=== PATIENT | female | born 2000 | race African-American/Black ===

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

== ENCOUNTER 2019-06-25 20:38 | Emergency (ER) | payer OTHER, SELFPAY ==
--- OUTSIDE RECORDS SUMMARY | 2019-06-25 20:40 | XMS REPORT ---
:2000 [facility] Address [address] [place] [address] [address] Care Team Providers Name Role Phone Unavailable Unavailable Unavailable Problems This patient has no known problems. Allergies, Adverse Reactions, Alerts This patient has no known allergies or adverse reactions. Medications This patient has no known medications. Encounters Start End Encounter Admission Attending Care Care Encounter Date/Time Date/Time Type Type Clinicians Facility Department ID 2019-06-24 2019-06-24 Emergency E [id number] 16:16:00 16:16:00
[2019-06-25] MEDS ORDERED: ACETAMINOPHEN 500 MG TAB ONE (21:02)
--- NOTE | 2019-06-25 22:08 | ER ---
Nurse's Notes [facility] Name: Tripp Smith Age: 18 yrs Sex: Female : 2000 Arrival Date: 06/25/2019 Time: 20:42 Bed 25 Private MD: Diagnosis: Influenza due to other identified influenza virus-Influenza B Presentation: 06/25 20:48 Presenting complaint: Patient states: Cough, congestion and fever since Monday. I was ca1 at [facility] and was told I had the Flu. They just told me to take Ibuprofen, Tylenol and TheraFlu. I was not swabbed. Ibuprofen taken 2 hrs ago. Tylenol 6 hrs. Transition of care: patient was not received from another setting of care. Onset of symptoms was June 25, 2019. Risk Assessment: Do you want to hurt yourself or someone else? Patient reports no desire to harm self or others. Initial Sepsis Screen: Does the patient meet any 2 criteria? No. Patient's initial sepsis screen is negative. Does the patient have a suspected source of infection? No. Patient's initial sepsis screen is negative. Care prior to arrival: None. 20:48 Method Of Arrival: Ambulatory ca1 20:48 Acuity: ALEJANDRO 3 ca1 Triage Assessment: 21:00 General: Appears uncomfortable, Behavior is calm, cooperative. ls4 21:00 Pain: Complains of pain in GENERALIZED Pain currently is 5 out of 10 on a pain scale. ls4 Quality of pain is described as aching. EENT: Throat is clear. Neuro: No deficits noted. Cardiovascular: No deficits noted. Respiratory: No deficits noted. GI: No deficits noted. : No deficits noted. Derm: No deficits noted. Musculoskeletal: No deficits noted. 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 - Coronavirus screen:: The patient has NOT traveled to [place] in the past 14 days. The patient has NOT had contact with known/suspected case of Coronavirus?. - Social history:: Smoking status: Patient denies any tobacco usage or history of. - Ebola Screening: : Patient negative for fever greater than or equal to 101.5 degrees Fahrenheit, and additional compatible Ebola Virus Disease symptoms Patient denies exposure to infectious person Patient denies travel to an Ebola-affected area in the 21 days before illness onset No symptoms or risks identified at this time. Screenin:19 Abuse screen: Denies threats or abuse. Denies injuries from another. Nutritional ls4 screening: No deficits noted. Tuberculosis screening: No symptoms or risk factors identified. Fall Risk None identified. Assessment: 22:00 Reassessment: Patient appears in no apparent distress at this time. Patient and/or ls4 family updated on plan of care and expected duration. Pain level reassessed. Patient is alert, oriented x 3, equal unlabored respirations, skin warm/dry/pink. 22:00 Pain: Pain currently is 4 out of 10 on a pain scale. Neuro: No deficits noted. ls4 Cardiovascular: No deficits noted. Respiratory: No deficits noted. GI: No deficits noted. Vital Signs: 20:52 BP 120 / 68; Pulse 125; Resp 19 S; Temp 103.1(O); Pulse Ox 97% on R/A; Weight 88.45 kg ca1 (R); Height 5 ft. 3 in. (160.02 cm) (R); 22:22 BP 118 / 74; Pulse 98; Resp 16; Temp 100.9(O); Pulse Ox 99% on R/A; Pain 3/10; ls4 20:52 Body Mass Index 34.54 (88.45 kg, 160.02 cm) ca1 ED Course: 20:42 Patient arrived in ED. jg7 20:51 Triage completed. ca1 20:52 Arm band placed on right wrist. ca1 20:59 Flu and/or RSV swab sent to lab. Strep swab sent to lab. ca1 21:00 Patient has correct armband on for positive identification. Bed in low position. Call ls4 light in reach. Side rails up X 1. Adult w/ patient. 21:00 Pulse ox on. NIBP on. ls4 21:00 No provider procedures requiring assistance completed. Patient did not have IV access ls4 during this emergency room visit. 21:05 Myles Erwin NP is PHCP. pm1 21:05 Aristides Bustos MD is Attending Physician. pm1 21:14 Anna Laws, RN is Primary Nurse. ls4 22:18 Strep Sent. ls4 22:18 Flu Sent. ls4 Administered Medications: 20:59 Drug: Tylenol 1000 mg Route: PO; ca1 22:18 Follow up: Response: No adverse reaction; Temperature is decreased; Pain is decreased ls4 22:07 Drug: Tussionex Pennkinetic ER 5 ml Route: PO; ls4 22:19 Follow up: Response: No adverse reaction ls4 22:07 Drug: Ibuprofen 800 mg Route: PO; ls4 22:19 Follow up: Response: No adverse reaction ls4 Outcome: 22:06 Discharge ordered by MD. pm1 22:22 Discharged to home ambulatory, with family. ls4 22:22 Condition: good 22:22 Discharge instructions given to patient, family, Instructed on discharge instructions, follow up and referral plans. medication usage, Demonstrated understanding of instructions, follow-up care, medications, Prescriptions given X 1. 22:23 Patient left the ED. ls4 Signatures: Myles Erwin, [facility] RN pm1 Anna Laws, RN RN ls4 Sonia Noble RN RN ca1 Daysi Tran jg7
--- NOTE | 2019-06-25 22:08 | EDPHYS ---
Physician Documentation [facility] Name: Tripp Smith Age: 18 yrs Sex: Female : 2000 Arrival Date: 06/25/2019 Time: 20:42 Bed 25 Private MD: ED Physician Aristides Bustos HPI: 06/25 20:54 This 18 yrs old Black Female presents to ER via Ambulatory with complaints of Flu pm1 Symptoms. 20:54 The patient or guardian reports cough, with no sputum, sore throat. Onset: The pm1 symptoms/episode began/occurred 3 day(s) ago. Severity of symptoms: in the emergency department the symptoms are unchanged. Modifying factors: The symptoms are alleviated by OTC cold preparation, the symptoms are aggravated by nothing. Associated signs and symptoms: Pertinent positives: fever, sore throat, Pertinent negatives: chest pain, diarrhea, ear ache, vomiting. The patient has not experienced similar symptoms in the past. clinically diagnosed with the flu on Monday at [facility]. 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 - Coronavirus screen:: The patient has NOT traveled to [place] in the past 14 days. The patient has NOT had contact with known/suspected case of Coronavirus?. - Social history:: Smoking status: Patient denies any tobacco usage or history of. - Ebola Screening: : Patient negative for fever greater than or equal to 101.5 degrees Fahrenheit, and additional compatible Ebola Virus Disease symptoms Patient denies exposure to infectious person Patient denies travel to an Ebola-affected area in the 21 days before illness onset No symptoms or risks identified at this time. ROS: 20:54 Eyes: Negative for injury, pain, redness, and discharge. pm1 20:54 Neck: Negative for injury, pain, and swelling, Cardiovascular: Negative for chest pain, palpitations, and edema. 20:54 Abdomen/GI: Negative for abdominal pain, nausea, vomiting, diarrhea, and constipation, Back: Negative for injury and pain, MS/Extremity: Negative for injury and deformity, Skin: Negative for injury, rash, and discoloration, Neuro: Negative for headache, weakness, numbness, tingling, and seizure. 20:54 Constitutional: Positive for fever. 20:54 ENT: Positive for sore throat, Negative for drainage from ear(s), ear pain. 20:54 Respiratory: Positive for cough, Negative for shortness of breath, sputum production, wheezing. Exam: 20:54 Constitutional: This is a well developed, well nourished patient who is awake, alert, pm1 and in no acute distress. Head/Face: Normocephalic, atraumatic. Neck: Trachea midline, no thyromegaly or masses palpated, and no cervical lymphadenopathy. Supple, full range of motion without nuchal rigidity, or vertebral point tenderness. No Meningismus. Chest/axilla: Normal chest wall appearance and motion. Nontender with no deformity. No lesions are appreciated. 20:54 Cardiovascular: Regular rate and rhythm with a normal S1 and S2. No gallops, murmurs, or rubs. Normal PMI, no JVD. No pulse deficits. Respiratory: Lungs have equal breath sounds bilaterally, clear to auscultation and percussion. No rales, rhonchi or wheezes noted. No increased work of breathing, no retractions or nasal flaring. Abdomen/GI: Soft, non-tender, with normal bowel sounds. No distension or tympany. No guarding or rebound. No evidence of tenderness throughout. Back: No spinal tenderness. No costovertebral tenderness. Full range of motion. Skin: Warm, dry with normal turgor. Normal color with no rashes, no lesions, and no evidence of cellulitis. MS/ Extremity: Pulses equal, no cyanosis. Neurovascular intact. Full, normal range of motion. 20:54 ENT: External ear(s): are unremarkable, Ear canal(s): are normal, TM's: are normal, Nose: is normal, Mouth: is normal, Posterior pharynx: Airway: normal, no evidence of obstruction, Tonsils: bilaterally enlarged, with erythema, no exudate, no ulcerations. 20:54 Neuro: Orientation: is normal, Motor: is normal, moves all fours. Vital Signs: 20:52 BP 120 / 68; Pulse 125; Resp 19 S; Temp 103.1(O); Pulse Ox 97% on R/A; Weight 88.45 kg ca1 (R); Height 5 ft. 3 in. (160.02 cm) (R); 22:22 BP 118 / 74; Pulse 98; Resp 16; Temp 100.9(O); Pulse Ox 99% on R/A; Pain 3/10; ls4 20:52 Body Mass Index 34.54 (88.45 kg, 160.02 cm) ca1 MDM: 21:05 Patient medically screened. pm1 22:05 Data reviewed: vital signs. Data interpreted: Pulse oximetry: on room air is 97 %. pm1 Interpretation: normal. Counseling: I had a detailed discussion with the patient and/or guardian regarding: the historical points, exam findings, and any diagnostic results supporting the discharge/admit diagnosis, lab results, the need for outpatient follow up, to return to the emergency department if symptoms worsen or persist or if there are any questions or concerns that arise at home. 06/25 20:54 Order name: Flu ca1 06/25 20:54 Order name: Strep ca1 06/25 21:43 Order name: Influenza Screen (A ; Complete Time: 21:55 EDMS 06/25 21:43 Order name: Group A Streptococcus Rapid Sc; Complete Time: 21:55 EDMS Administered Medications: 20:59 Drug: Tylenol 1000 mg Route: PO; ca1 22:18 Follow up: Response: No adverse reaction; Temperature is decreased; Pain is decreased ls4 22:07 Drug: Tussionex Pennkinetic ER 5 ml Route: PO; ls4 22:19 Follow up: Response: No adverse reaction ls4 22:07 Drug: Ibuprofen 800 mg Route: PO; ls4 22:19 Follow up: Response: No adverse reaction ls4 Disposition: 06/25/19 22:06 Discharged to Home. Impression: Influenza due to other identified influenza virus - Influenza B. - Condition is Stable. - Discharge Instructions: Influenza, Adult. - Prescriptions for Guaifenesin AC 10- 100 mg/5 mL Oral Liquid - take 10 milliliter by ORAL route every 4 hours As needed; 240 milliliter. - Medication Reconciliation Form, Thank You Letter, Antibiotic Education, Prescription Opioid Use form. - Follow up: Emergency Department; When: As needed; Reason: Worsening of condition. Follow up: Private Physician; When: 2 - 3 days; Reason: Recheck today's complaints, Continuance of care, Re-evaluation by your physician. - Problem is new. - Symptoms have improved. Addendum: 06/27/2019 08:24 Co-signature as Attending Physician, Aristides Bustos MD I agree with the assessment and t w4 plan of care. Signatures: Dispatcher [employer] EDMS Myles Erwin, COLLECTION SYSTEMS WORKER COLLECTION SYSTEMS WORKER pm1 Aristides Bustos MD MD tw4 Anna Laws RN RN ls4 Sonia Noble RN RN ca1 Corrections: (The following items were deleted from the chart) 06/25 22:23 22:06 06/25/2019 22:06 Discharged to Home. Impression: Influenza due to other ls4 identified influenza virus - Influenza B. Condition is Stable. Forms are Medication Reconciliation Form, Thank You Letter, Antibiotic Education, Prescription Opioid Use. Follow up: Emergency Department; When: As needed; Reason: Worsening of condition. Follow up: Private Physician; When: 2 - 3 days; Reason: Recheck today's complaints, Continuance of care, Re-evaluation by your physician. Problem is new. Symptoms have improved. pm1
[2019-06-25] MEDS ORDERED: IBUPROFEN 400 MG TAB ONE (22:12)
[2019-06-25] MEDS ORDERED: HYDROCODONE/CHLORPHEN 5 ML/OSYR ONE (22:12)
[2019-06-27 12:41] VITALS: BP 118/74; TEMP 100.9; O2SAT 99
== END 2019-06-25 22:23 | disposition home or self-care (01) ==
LOC: ER 20:38
DX: J10.89 Influenza due to other identified influenza virus with other manifestations (principal); Z88.0 Allergy status to penicillin
CPT/HCPCS: 87070; 87081; 87804; 99284

== ENCOUNTER 2023-11-01 13:35 | Emergency (ER) | payer SELFPAY ==
--- OUTSIDE RECORDS SUMMARY | 2023-11-01 13:41 | XMS REPORT | Continuity of Care Document ---
Author Name Unknown Address [address] [facility] [place] [address] [facility] Address [address] [facility] [address] [place] [address] Care Team Providers Care Log Hauler Name Role Phone GENIE LUA Primary Care Physician Unavailab ROSAURA Ford Attending Clinician Unavailable ROSAURA MENDEZ Attending Clinician Unavailable PARVIN SZYMANSKI Attending Clinician Un available Genie Lua CNM Attending Clinician [phone] GENIE LUA Attending Clinician Unavailable Sobia LIAO, Radha Zuniga Attending Clinician [phone] SHARON WILLIAMSON Attending Clinician Unavaila OLGA LIDIA Cooley Attending Clinician Unavailable 2, Pea-Rm[facility] Temp Provider Attending Clinician U Olga Lidia Robin CNM Attending Clinician [phone] Doctor Unassigned, [place] Attending Clinician U josephine Waldemar [facility] Maurice Kc Attending Clinician + Layla Hamlin CNM Attending Clinician +- [phone] MAURICE MEDEIROS Attending Clinician [facility] Attending [facility]ician + AGUIRRE ELSA L Attending Clinician Unavail able Tg GARCIA Attending Clinician Unavailable Jose PACTg Attending Clinician [phone] POLLY CUMMINGS Attending Clinician Unavailable Zoila PACPolly S Attending Clinician [phone] DANIEL WOODS Attending Clinician Unavailab JOE Pedersen Attending Clinician Unavailab beto Visit, Con-[facility] Nurse Attending Clinician Unava iljasmin Méndez [facility], Joe Galdamez Attending Clinician + [phone] Ambar Matson Attending Clinician [phone] AMBAR FLORENCE Attending Clinician Unavailable ANNA MILLER Attending Clinician Unavailable Anna Miller APN Attending Clinician [phone] Visit, Ang-[facility] Nurse Attending Clinician Unava ilable ELI WOODSON Attending Clinician Unavailable Lab, Nw-Rm[facility] Attending Clinician Unavailable Eli Woodson PA-C Attending Clinician [phone] Burak Duvall Attending Clinician Unavailable Lab, Con[facility] Attending Clinician Unavailable Juju Novoa Attending Clinician [phone] JUJU PENN Attending Clinician Unavailable Esteban Mclean DO Attending Clinician [phone] Belén Omer CNM Attending Clinician + [phone] BELÉN OMER Attending Clinician Unavailable Daniel Bernard Attending Clinician + [phone] sharyn Attending Clinician Unavailable Maira A Knutson MD Attending Clinician [phone] Physician, No Primary or Family Admitting Clinic lilly Unavailable sharyn Admitting Clinician Unavailable Payers Payer Name Policy Type Policy Number Effective Date Expirati on Date Source [facility] [id number] 00:00:00 Problems Condition Name Condition Details Condition Category Status Onset Date Resolution Date Last Treatment Date Treating Clinician Comments Source 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 Will need repeat pap in 1 year 10/2023 [facility] Atypical squamous cells of undetermin ed significan ce (ASCUS) on Papanicola ou smear of cervix Atypical squamous cells of undetermin ed significan ce (ASCUS) on Papanicola ou smear of cervix Disease Active 4- 00:00: 00 Overview: Formattin g of this note might be different from the original. 07/2021, repeat pap in 1 year 07/2022 [facility] Severe acute respirator y syndrome coronaviru s 2 (SARS-CoV- 2) vaccinatio n not indicated Severe acute respirator y syndrome coronaviru s 2 (SARS-CoV- 2) vaccinatio n not indicated Disease Active 07-07 00:00: 00 Overview: Formattin g of this note might be different from the original. Problem added via discern rule sz_covid_ pos_neg [facility] Severe acute respirator y syndrome coronaviru s 2 (SARS-CoV- 2) vaccinatio n not indicated Severe acute respirator y syndrome coronaviru s 2 (SARS-CoV- 2) vaccinatio n not indicated Disease Active 07-07 00:00: 00 Overview: Formattin g of this note might be different from the original. Problem added via discern rule sz_covid_ pos_neg [facility] Other general counseling and advice for contracept rosa management Other general counseling and advice for contracept rosa management Disease Active 1- 00:00: 00 [facility] Screening examinatio n for STD (sexually transmitte d disease) Screening examinatio n for STD (sexually transmitte d disease) Disease Active 8-06 00:00: 00 [facility] History of PCOS History of PCOS Disease Active 08-04 00:00: 00 [facility] History of gonorrhea 09/05/18 History of gonorrhea 09/05/18 Disease Active 2019-05 2- 00:00: 00 [facility] Morbid obesity Morbid obesity Disease Active 3- 00:00: 00 [facility] Irregular menstrual cycle Irregular menstrual cycle Disease Active 07-31 00:00: 00 [facility] Bacterial vaginosis Bacterial vaginosis Disease Active 09-05 00:00: 00 [facility] History of chlamydia 01/23/20 - CORNELL negative 04/2020 History of chlamydia 01/23/20 - CORNELL negative 04/2020 Disease Active 11-23 00:00: 00 [facility] Allergies, Adverse Reactions, Alerts Allergy Name Allergy Type Status Severity Reaction(s) Onset Date Inactive Date Treating Clinician Comments Source Penicill ins DA Active U UNKNOWN 11-04 00:00: 00 [facility] Penicill ins DA Active U 11-04 00:00: 00 [facility] Penicill ins DA Active U 2019-05 00:00: 00 [facility] DA Active U HIVES 2019-05 00:00: 00 [facility] PENICILL IN DRUG INGREDI Active Hives 828 00:00: 00 [facility] Penicill in Drug Allergy Active Rash 8 00:00: 00 [facility] Social History Social Habit Start Date Stop Date Quantity Comments Source [facility] Alcohol intake 2023-02-23 00:00:00 2023-02-23 00:00:00 Current non-drinker of alcohol (finding) [facility] Exposure to SARS-CoV-2 (event) 2022-10-01 00:00:00 2022-10-11 09:08:00 Not sure [facility] History of Social function 2022-06-03 00:00:00 2022-06-03 00:00:00 [facility] Tobacco Comment 2022-06-03 00:00:00 2022-06-03 00:00:00 denies smoke exposure [facility] Tobacco use and exposure 2022-06-03 00:00:00 2022-06-03 00:00:00 Smokeless tobacco non-user [facility] Sex Assigned At 2000 00:00:00 2000 00:00:00 [facility] Smoking Status Start Date Stop Date Source Never smoked tobacco [facility] Medications Ordered Medication Name Filled Medication Name Start Date Stop Date Current Medication? Ordering Clinician Indication Dosage Frequency Signature (SIG) Comments Components Source metroNIDAZO LE 500 mg tablet 2022-05 017 00:00: 00 03-08 04:59 :00 No [id number] 500mg Take 1 tablet by mouth every 12 (twelve) hours for 7 days. [facility] acyclovir 400 mg tablet 9-14 00:00: 00 Yes [id number] 400mg Take 1 tablet by mouth in the morning and 1 tablet at noon and 1 tablet in the evening. [facility] metroNIDAZO LE 500 mg tablet 9-14 00:00: 00 02-23 00:00 :00 No [id number] 500mg Take 1 tablet by mouth every 12 (twelve) hours. [facility] metroNIDAZO LE 500 mg tablet 9-08 00:00: 00 01-26 00:00 :00 No [id number] 500mg Take 1 tablet by mouth every 12 (twelve) hours for 7 days. [facility] acyclovir 400 mg tablet 628 00:00: 00 11-15 04:59 :00 No [id number] 400mg Take 1 tablet by mouth in the morning and 1 tablet at noon and 1 tablet in the evening. Do all this for 5 days. [facility] clindamycin 300 mg capsule 6-04 00:00: 00 10-24 04:59 :00 No [id number] 300mg Take 1 capsule by mouth in the morning and 1 capsule in the evening. Do all this for 7 days. [facility] metroNIDAZO LE (FLAGYL) 500 mg tablet 06-06 00:00: 00 06-14 05:59 :00 No [id number] 500mg Take 1 tablet by mouth in the morning and 1 tablet in the evening. Take with meals. Do all this for 7 days. [facility] fluconazole 150 mg tablet 06-06 00:00: 00 06-07 05:59 :00 No [id number] 150mg Take 1 tablet by mouth once now for 1 dose. [facility] fluconazole 150 mg tablet 06-03 00:00: 00 06-04 05:59 :00 No [id number] 150mg Take 1 tablet by mouth once now for 1 dose. [facility] azithromyci n (ZITHROMAX) tablet 500 mg 2021-05 06:15: 00 03-29 06:19 :00 No 500mg 500 mg, Oral, ONCE, 1 dose, On Mon03/29/22 at 0015, NATTY
Re ason for Anti-Infec tive: Documented Infection< br>Documen fabio Infection Site: HEENT
D uration of Therapy: Other (see Comments) [facility] azithromyci n (ZITHROMAX Z-BRIJESH) 250 mg tablet 2021-05 00:00: 00 02-23 00:00 :00 No [id number] 250mg Take 1 tablet by mouth SEE-INSTRU CTIONS. Take 500 mg day 1, then 250 mg days 2 to 5. [facility] azithromyci n (ZITHROMAX) tablet 500 mg 01-10 02:45: 00 01-10 02:37 :00 No 500mg 500 mg, Oral, ONCE, 1 dose, On Mon01/09/22 at 2145, NATTY
Re ason for Anti-Infec tive: Documented Infection< br>Documen fabio Infection Site: HEENT
D uration of Therapy: Other (see Comments) [facility] ibuprofen (ADVIL CHILDREN'S) 100 mg/5 mL oral suspension 400 mg 01-10 01:30: 00 01-10 01:21 :00 No 400mg 400 mg, Oral, ONCE, 1 dose, On 01/09/22 at 2030, NATTY [facility] azithromyci n 250 mg tablet 01-09 00:00: 00 02-23 00:00 :00 No [id number] 250mg Take 1 tablet by mouth in the morning. [facility] metroNIDAZO LE (FLAGYL) 500 mg tablet -20 00:00: 00 09-16 04:59 :00 No [id number] 500mg Take 1 tablet by mouth 2 (two) times daily for 14 days. [facility] MEDROXYPROG ESTERONE 10 mg tablet 3-07 00:00: 00 10-11 00:00 :00 No [id number] 10mg TAKE 1 TABLET BY MOUTH DAILY [facility] metroNIDAZO LE 500 mg tablet 2- 00:00: 00 09-01 00:00 :00 No [id number] 500mg Take 1 tablet by mouth 2 (two) times daily. [facility] albuterol 90 mcg/actuati on inhaler 2020-05 00:00: 00 Yes INHALE 2 PUFFS BY MOUTH EVERY 6 HOURS FOR 30 DAYS [facility] ALBUTEROL INHALE 12-18 13:15: 02 Yes Inhale. [facility] acyclovir 400 mg tablet 7- 00:00: 00 09-05 00:00 :00 No TAKE 1 TABLET BY MOUTH THREE TIMES DAILY FOR 5 DAYS [facility] metroNIDAZO LE 500 mg tablet 2019-05 2 00:00: 00 04-29 05:59 :00 No [id number] 500mg Take 1 tablet by mouth 2 (two) times daily for 7 days. [facility] miconazole (MONISTAT 7) 2 % vaginal cream 2019-05 2- 00:00: 00 04-29 05:59 :00 No [id number] 1{appli cator} Insert 1 Applicator into vagina at bedtime for 7 days. [facility] loratadine 10 mg tablet 08-26 00:00: 00 Yes 10mg Take 1 tablet by mouth daily. [facility] Immunizations Ordered Immunization Name Filled Immunization Name Date Status Comments Source HPV9 2022-02-14 00:00:00 Completed [facility] HPV9 2022-02-14 00:00:00 Completed [facility] HPV9 2022-02-14 00:00:00 Completed [facility] HPV9 2022-02-14 00:00:00 Completed [facility] HPV9 2022-02-14 00:00:00 Completed [facility] HPV9 2022-02-14 00:00:00 Completed [facility] HPV9 2022-02-14 00:00:00 Completed [facility] HPV9 2022-02-14 00:00:00 Completed [facility] HPV9 2022-02-14 00:00:00 Completed [facility] HPV9 2022-02-14 00:00:00 Completed [facility] HPV9 2022-02-14 00:00:00 Completed [facility] HPV9 2022-02-14 00:00:00 Completed [facility] HPV9 2022-02-14 00:00:00 Completed [facility] HPV9 2022-02-14 00:00:00 Completed [facility] HPV9 2022-02-14 00:00:00 Completed [facility] HPV9 2022-02-14 00:00:00 Completed [facility] HPV9 2022-02-14 00:00:00 Completed [facility] HPV9 2022-02-14 00:00:00 Completed [facility] HPV9 2022-02-14 00:00:00 Completed [facility] HPV9 2022-02-14 00:00:00 Completed [facility] HPV9 2022-02-14 00:00:00 Completed [facility] HPV9 2022-02-14 00:00:00 Completed [facility] HPV9 2022-02-14 00:00:00 Completed [facility] HPV9 2022-02-14 00:00:00 Completed [facility] HPV9 2021-09-01 00:00:00 Completed [facility] HPV9 2021-09-01 00:00:00 Completed [facility] HPV9 2021-09-01 00:00:00 Completed [facility] HPV9 2021-09-01 00:00:00 Completed [facility] HPV9 2021-09-01 00:00:00 Completed [facility] HPV9 2021-09-01 00:00:00 Completed [facility] HPV9 2021-09-01 00:00:00 Completed [facility] HPV9 2021-09-01 00:00:00 Completed [facility] HPV9 2021-09-01 00:00:00 Completed [facility] HPV9 2021-09-01 00:00:00 Completed [facility] HPV9 2021-09-01 00:00:00 Completed [facility] HPV9 2021-09-01 00:00:00 Completed [facility] HPV9 2021-09-01 00:00:00 Completed [facility] HPV9 2021-09-01 00:00:00 Completed [facility] HPV9 2021-09-01 00:00:00 Completed [facility] HPV9 2021-09-01 00:00:00 Completed [facility] HPV9 2021-09-01 00:00:00 Completed [facility] HPV9 2021-09-01 00:00:00 Completed [facility] HPV9 2021-09-01 00:00:00 Completed [facility] HPV9 2021-09-01 00:00:00 Completed [facility] HPV9 2021-09-01 00:00:00 Completed [facility] HPV9 2021-09-01 00:00:00 Completed [facility] HPV9 2021-09-01 00:00:00 Completed [facility] HPV9 2021-09-01 00:00:00 Completed [facility] HPV9 2021-09-01 00:00:00 Completed [facility] HPV9 2021-09-01 00:00:00 Completed [facility] HPV9 2021-09-01 00:00:00 Completed [facility] HPV9 2021-09-01 00:00:00 Completed [facility] HPV9 2021-09-01 00:00:00 Completed [facility] HPV9 2021-09-01 00:00:00 Completed [facility] HPV9 2021-09-01 00:00:00 Completed [facility] HPV9 2021-09-01 00:00:00 Completed [facility] HPV9 2021-09-01 00:00:00 Completed [facility] HPV9 2021-09-01 00:00:00 Completed [facility] HPV9 2021-08-04 00:00:00 Completed [facility] HPV9 2021-08-04 00:00:00 Completed [facility] HPV9 2021-08-04 00:00:00 Completed [facility] HPV9 2021-08-04 00:00:00 Completed [facility] HPV9 2021-08-04 00:00:00 Completed [facility] HPV9 2021-08-04 00:00:00 Completed [facility] HPV9 2021-08-04 00:00:00 Completed [facility] HPV9 2021-08-04 00:00:00 Completed [facility] HPV9 2021-08-04 00:00:00 Completed [facility] HPV9 2021-08-04 00:00:00 Completed [facility] HPV9 2021-08-04 00:00:00 Completed [facility] HPV9 2021-08-04 00:00:00 Completed [facility] HPV9 2021-08-04 00:00:00 Completed [facility] HPV9 2021-08-04 00:00:00 Completed [facility] HPV9 2021-08-04 00:00:00 Completed [facility] HPV9 2021-08-04 00:00:00 Completed [facility] HPV9 2021-08-04 00:00:00 Completed [facility] HPV9 2021-08-04 00:00:00 Completed [facility] HPV9 2021-08-04 00:00:00 Completed [facility] HPV9 2021-08-04 00:00:00 Completed [facility] HPV9 2021-08-04 00:00:00 Completed [facility] HPV9 2021-08-04 00:00:00 Completed [facility] HPV9 2021-08-04 00:00:00 Completed [facility] HPV9 2021-08-04 00:00:00 Completed [facility] HPV9 2021-08-04 00:00:00 Completed [facility] HPV9 2021-08-04 00:00:00 Completed [facility] HPV9 2021-08-04 00:00:00 Completed [facility] HPV9 2021-08-04 00:00:00 Completed [facility] HPV9 2021-08-04 00:00:00 Completed [facility] HPV9 2021-08-04 00:00:00 Completed [facility] HPV9 2021-08-04 00:00:00 Completed [facility] HPV9 2021-08-04 00:00:00 Completed [facility] HPV9 2021-08-04 00:00:00 Completed [facility] HPV9 2021-08-04 00:00:00 Completed [facility] SARS-COV-2 COVID-19 PFIZER VACCINE 2021-01-31 00:00:00 Completed [facility] SARS-COV-2 COVID-19 PFIZER VACCINE 2021-01-31 00:00:00 Completed [facility] SARS-COV-2 COVID-19 PFIZER VACCINE 2021-01-31 00:00:00 Completed [facility] SARS-COV-2 COVID-19 PFIZER VACCINE 2021-01-31 00:00:00 Completed [facility] SARS-COV-2 COVID-19 PFIZER VACCINE 2021-01-31 00:00:00 Completed [facility] SARS-COV-2 COVID-19 PFIZER VACCINE 2021-01-31 00:00:00 Completed [facility] SARS-COV-2 COVID-19 PFIZER VACCINE 2021-01-10 00:00:00 Completed [facility] SARS-COV-2 COVID-19 PFIZER VACCINE 2021-01-10 00:00:00 Completed [facility] SARS-COV-2 COVID-19 PFIZER VACCINE 2021-01-10 00:00:00 Completed [facility] SARS-COV-2 COVID-19 PFIZER VACCINE 2021-01-10 00:00:00 Completed [facility] SARS-COV-2 COVID-19 PFIZER VACCINE 2021-01-10 00:00:00 Completed [facility] SARS-COV-2 COVID-19 PFIZER VACCINE 2021-01-10 00:00:00 Completed [facility] HPV9 Unknown Completed [facility] HPV9 Unknown Completed [facility] HPV9 Unknown Completed [facility] SARS-COV-2 COVID-19 PFIZER VACCINE Unknown Completed [facility] SARS-COV-2 COVID-19 PFIZER VACCINE Unknown Completed [facility] HPV9 Unknown Completed [facility] HPV9 Unknown Completed [facility] HPV9 Unknown Completed [facility] SARS-COV-2 COVID-19 PFIZER VACCINE Unknown Completed [facility] SARS-COV-2 COVID-19 PFIZER VACCINE Unknown Completed [facility] HPV9 Unknown Completed [facility] HPV9 Unknown Completed [facility] HPV9 Unknown Completed [facility] SARS-COV-2 COVID-19 PFIZER VACCINE Unknown Completed [facility] SARS-COV-2 COVID-19 PFIZER VACCINE Unknown Completed [facility] HPV9 Unknown Completed [facility] HPV9 Unknown Completed [facility] HPV9 Unknown Completed [facility] SARS-COV-2 COVID-19 PFIZER VACCINE Unknown Completed [facility] SARS-COV-2 COVID-19 PFIZER VACCINE Unknown Completed [facility] SARS-COV-2 COVID-19 PFIZER VACCINE Unknown Completed [facility] SARS-COV-2 COVID-19 PFIZER VACCINE Unknown Completed [facility] SARS-COV-2 COVID-19 PFIZER VACCINE Unknown Completed [facility] SARS-COV-2 COVID-19 PFIZER VACCINE Unknown Completed [facility] HPV9 Unknown Completed [facility] HPV9 Unknown Completed [facility] HPV9 Unknown Completed [facility] SARS-COV-2 COVID-19 PFIZER VACCINE Unknown Completed [facility] SARS-COV-2 COVID-19 PFIZER VACCINE Unknown Completed [facility] HPV9 Unknown Completed [facility] HPV9 Unknown Completed [facility] HPV9 Unknown Completed [facility] SARS-COV-2 COVID-19 PFIZER VACCINE Unknown Completed [facility] SARS-COV-2 COVID-19 PFIZER VACCINE Unknown Completed [facility] HPV9 Unknown Completed [facility] HPV9 Unknown Completed [facility] HPV9 Unknown Completed [facility] SARS-COV-2 COVID-19 PFIZER VACCINE Unknown Completed [facility] SARS-COV-2 COVID-19 PFIZER VACCINE Unknown Completed [facility] HPV9 Unknown Completed [facility] HPV9 Unknown Completed [facility] HPV9 Unknown Completed [facility] SARS-COV-2 COVID-19 PFIZER VACCINE Unknown Completed [facility] SARS-COV-2 COVID-19 PFIZER VACCINE Unknown Completed [facility] HPV9 Unknown Completed [facility] HPV9 Unknown Completed [facility] HPV9 Unknown Completed [facility] SARS-COV-2 COVID-19 PFIZER VACCINE Unknown Completed [facility] SARS-COV-2 COVID-19 PFIZER VACCINE Unknown Completed [facility] HPV9 Unknown Completed [facility] HPV9 Unknown Completed [facility] HPV9 Unknown Completed [facility] SARS-COV-2 COVID-19 PFIZER VACCINE Unknown Completed [facility] SARS-COV-2 COVID-19 PFIZER VACCINE Unknown Completed [facility] Vital Signs Vital Name Observation Time Observation Value Comments S ource Systolic blood pressure 2023-02-23 12:02:00 117 [facility] Di[facility] 2023-02-23 12:02:00 79 mm[Hg[facility] Heart rate 2023-02-23 12:02:00 83 /[facility] 2023-02-23 12:02:00 36.06 Kiana [facility] Respiratory rate 2023-02-23 12:02:00 17 /min [facility] Body height 2023-02-23 12:02:00 160 cm [facility] Body weight 2023-02-23 12:02:00 106.85 kg [facility] BMI 2023-02-23 12:02:00 41.73 kg/m2 [facility] Systolic blood pressure 2023-01-20 16:31:00 121 mm[Hg[facility] Diastolic blood pressure 2023-01-20 16:31:00 86 mm[Hg] [facility] Heart rate 2023-01-20 16:31:00 91 /min Unive [facility] Body temperature 2023-01-20 16:31:00 36.28 Kiana [facility] Respiratory rate 2023-01-20 16:31:00 18 /min [facility] Body height 2023-01-20 16:31:00 160 cm [facility] Body weight 2023-01-20 16:31:00 105.325 kg [facility] BMI 2023-01-20 16:31:00 41.13 kg/m2 [facility] Systolic blood pressure 2022-10-11 14:09:00 123 mm[Hg[facility] Diastolic blood pressure 2022-10-11 14:09:00 85 mm[Hg] [facility] Heart rate 2022-10-11 14:09:00 88 /min Unive [facility] Body temperature 2022-10-11 14:09:00 36.17 [facility] Respiratory rate 2022-10-11 14:09:00 18 /min [facility] Body height 2022-10-11 14:09:00 160 cm [facility] Body weight 2022-10-11 14:09:00 106.142 kg [facility] BMI 2022-10-11 14:09:00 41.45 kg/m2 [facility] Systolic blood pressure 2022-06-03 20:10:00 128 mm[Hg] [facility] Diastolic blood pressure 2022-06-03 20:10:00 85 mm[Hg] [facility] Heart rate 2022-06-03 20:10:00 82 /min Unive [facility] Body temperature 2022-06-03 20:10:00 36.39 K[facility] Respiratory rate 2022-06-03 20:10:00 18 /min [facility] Body height 2022-06-03 20:10:00 160 cm [facility] Body weight 2022-06-03 20:10:00 102.74 kg [facility] BMI 2022-06-03 20:10:00 40.12 kg/m2 [facility] Oxygen saturation in Arterial blood by Pulse oximetry 2022-06-03 20:10:00 99 /min [facility] Systolic blood pressure 2022-04-22 19:55:00 128 mm[Hg] [facility] Diastolic blood pressure 2022-04-22 19:55:00 82 mm[Hg] [facility] Heart rate 2022-04-22 19:55:00 100 /min Unive [facility] Body temperature 2022-04-22 19:55:00 36.44 K[facility] Respiratory rate 2022-04-22 19:55:00 17 /min [facility] Body height 2022-04-22 19:55:00 160 cm [facility] Body weight 2022-04-22 19:55:00 103.692 kg [facility] BMI 2022-04-22 19:55:00 40.49 kg/m2 [facility] Systolic blood pressure 2022-03-29 05:25:00 139 mm[Hg] [facility] Diastolic blood pressure 2022-03-29 05:25:00 84 mm[Hg] [facility] Heart rate 2022-03-29 05:25:00 95 /min Unive [facility] Body temperature 2022-03-29 05:25:00 36.89 K[facility] Respiratory rate 2022-03-29 05:25:00 18 /min [facility] Body height 2022-03-29 05:25:00 160 cm [facility] Body weight 2022-03-29 05:25:00 97.523 kg [facility] BMI 2022-03-29 05:25:00 38.09 kg/m2 [facility] Oxygen saturation in Arterial blood by Pulse oximetry 2022-03-29 05:25:00 96 [facility] Systolic blood pressure 2022-02-14 20:14:00 133 mm[facility]Hg[facility] Diastolic blood pressure 2022-02-14 20:14:00 87 mm[facility]Hg[facility] Heart rate 2022-02-14 20:14:00 96 /min Unive [facility] Body temperature 2022-02-14 20:14:00 36.61 [facility] Respiratory rate 2022-02-14 20:14:00 18 /min [facility] Body weight 2022-02-14 20:14:00 103.284 kg [facility] BMI 2022-02-14 20:14:00 40.34 kg/m2 [facility] Body temperature 2022-01-10 02:38:00 37.61 [facility] Systolic blood pressure 2022-01-10 01:15:00 133 mm[facility]Hg[facility] Diastolic blood pressure 2022-01-10 01:15:00 80 mm[facility]Hg[facility] Heart rate 2022-01-10 01:15:00 109 [facility] 2022-01-10 01:15:00 18 /min [facility] Body height 2022-01-10 01:15:00 160 cm [facility] Body weight 2022-01-10 01:15:00 99.791 kg [facility] BMI 2022-01-10 01:15:00 38.97 kg/m2 [facility] Oxygen saturation in Arterial blood by Pulse oximetry 2022-01-10 01:15:00 98 /min [facility] Systolic blood pressure 2021-10-14 19:00:00 114 mm[Hg[facility] Diastolic blood pressure 2021-10-14 19:00:00 83 mm[Hg[facility] Heart rate 2021-10-14 19:00:00 75 /min Unive [facility] Body temperature 2021-10-14 19:00:00 37.17 [facility] Respiratory rate 2021-10-14 19:00:00 18 /min [facility] Body height 2021-10-14 19:00:00 160 cm [facility] Body weight 2021-10-14 19:00:00 104.554 kg [facility] BMI 2021-10-14 19:00:00 40.83 kg/m2 [facility] Systolic blood pressure 2021-09-01 21:39:00 133 mm[facility]Hg[facility] Diastolic blood pressure 2021-09-01 21:39:00 80 mm[Hg[facility] Heart rate 2021-09-01 21:39:00 100 /min Unive [facility] Body temperature 2021-09-01 21:39:00 36.67 [facility] Respiratory rate 2021-09-01 21:39:00 20 /min [facility] Body height 2021-09-01 21:39:00 160 cm [facility] Body weight 2021-09-01 21:39:00 105.688 kg [facility] BMI 2021-09-01 21:39:00 41.27 kg/m2 [facility] Procedures Procedure Date / Time Performed Performing Clinician Source POCT URINALYSIS W/O SPECIFIC GRAVITY 2023-02-23 12:06:00 Genie Lua [facility] GC & CHLAMYDIA AMPLIFIED ASSAY 2023-01-20 18:46:00 Olga Lidia Flores [facility] GALV ONLY - VAGINAL PATHOGENS BY NUCLEIC ACID TESTING 2023-01-20 18:23:00 Olga Lidia Flores [facility] POCT TEST 2023-01-20 16:44:00 Olga Lidia Flores [facility] AUTHORIZATION TO RELEASE PHI TO [facility] 2023-01-20 05:01:00 Doctor Unassigned, [place] [facility] ASSIGNMENT OF BENEFITS 2022-10-11 13:46:31 Docto r Unassigned, [place] [facility] RAPID STREP SCREEN FOR GROUP A 2022-03-29 05:29:00 Bronosn Garcia [facility] RAPID INFLUENZA A/B 2022-03-29 05:29:00 Kimmy Garcia [facility] NOTICE OF PRIVACY PRACTICES 2022-03-29 05:24:01 Doctor Unassigned, [place] [facility] CONSENT/REFUSAL FOR DIAGNOSIS AND TREATMENT 2022-03-29 05:19:46 Doctor Unassigned, [place] [facility] GARDASIL 9 (HPV 9V) VACCINE 2022-02-14 20:50:17 Maurice Medeiros [facility] POCT TEST 2022-02-14 20:21:00 Lionel Medeiros [facility] RAPID STREP SCREEN FOR GROUP A 2022-01-10 01:18:00 Polly Cummings [facility] NOTICE OF PRIVACY PRACTICES 2022-01-10 01:12:30 Doctor Unassigned, [place] [facility] CONSENT/REFUSAL FOR DIAGNOSIS AND TREATMENT 2022-01-10 01:11:04 Doctor Unassigned, [place] [facility] POCT TEST 2021-10-14 00:00:00 Mago Méndez [facility] GC & CHLAMYDIA AMPLIFIED ASSAY 2021-09-01 22:28:00 Ambar Florence [facility] GARDASIL 9 (HPV 9V) VACCINE 2021-09-01 21:45:54 Ambar Florence [facility] POCT TEST 2021-09-01 00:00:00 Ambar Florence [facility] Encounters Start Date/Time End Date/Time Encounter Type Admission Type Attending [facility] Care Facility Care Department Encounter ID Source 2021-03-11 18:14:59 Emergency [facility] [id number] [facility] 2021-03-11 12:50:35 Emergency [facility] [id number] [facility] 2020-06-10 13:46:00 Inpatient HCANW ELSY [id number] [facility] 2020-03-24 16:37:00 Inpatient HCANW ELSY [id number] [facility] 2020-03-23 18:43:00 Inpatient HCANW [facility] [id number] [facility] 2023-05-10 17:57:00 2023-05-10 19:53:00 Emergency E PARVIN SZYMANSKI [facility] [id number] [facility] 2023-02-28 00:00:00 2023-02-28 00:00:00 Case Management Genie Lua [facility] [employer] [facility] MATERNAL & CHILD [facility] 1.2.840.114 350.1.13.10 4.2.7.2.686 [id number] [facility] 2023-02-23 06:45:00 2023-02-23 08:00:21 Out[facility] [id number] [facility] 2023-02-23 06:45:00 2023-02-23 08:00:21 Office Visit Genie Lua [facility] [employer] [facility] MATERNAL & CHILD [facility] 1.2.840.114 350.1.13.10 4.2.7.2.686 [id number] [facility] 2023-01-25 00:00:00 2023-01-25 00:00:00 Telephone Radha Ramsay [facility] [employer] [facility] MATER[facility] & CHILD [facility] 1.2.840.114 350.1.13.10 4.2.7.2.686 [id number] [facility] 2023-01-20 23:24:00 2023-01-21 01:17:00 Emergency E SHARON WILLIAMSON [facility] [id number] [facility] 2023-01-20 11:15:00 2023-01-20 12:42:26 Outpatient R OLGA LIDIA FLORES [facility] [id number] [facility] 2023-01-20 11:15:00 2023-01-20 12:42:26 Office Visit 2, [facility] Temp Provider aRdha Ramsay Rhonda [facility] [employer] [facility] MATER[facility] & [facility]ILD [facility] 1.0.114 350.1.13.10 4.2.7.2.686 [id number] [facility] 2023-01-20 00:00:00 2023-01-20 00:00:00 Orders Only Doctor Unassigned, [place] [facility] 1.0.114 350.1.13.10 4.2.7.2.686 [id number] [facility] 2023-01-12 07:45:00 2023-01-12 07:45:00 Outpatient GENIE BRITTON AISHA [facility] [id number] [facility] 2023-01-11 00:00:00 2023-01-11 00:00:00 Telephone Maurice Medeiros [facility] [employer] [facility] & CHILD [facility] 1.0.114 350.1.13.10 4.2.7.2.686 [id number] [facility] 2023-01-11 00:00:00 2023-01-11 00:00:00 Patient Secure Msg Doctor Unassigned, [place] [facility] [employer] [facility] & CHILD [facility] 1..114 350.1.13.10 4.2.7.2.686 [id number] [facility] 2022-11-08 00:00:00 2022-11-08 00:00:00 Telephone Maurice Medeiros [facility] [employer] [facility] & CHILD [facility] 1.0.114 350.1.13.10 4.2.7.2.686 [id number] [facility] 2022-11-01 00:00:00 2022-11-01 00:00:00 Telephone Maurice Medeiros [facility] [employer] [facility] & CHILD [facility] 1.2.840.114 350.1.13.10 4.2.7.2.686 [id number] [facility] 2022-10-16 00:00:00 2022-10-16 00:00:00 Case Management Layla Hamlin [facility] [employer] [facility] & CHILD [facility] 1.2.840.114 350.1.13.10 4.2.7.2.686 [id number] [facility] 2022-10-11 09:00:00 2022-10-11 10:10:49 Outpatient R MAURICE MEDEIROS [facility] [id number] [facility] 2022-10-11 09:00:00 2022-10-11 10:10:49 Office Visit Maurice Medeiros [facility] [employer] [facility] CHILD [facility] 1..840.114 350.1.13.10 4.2.7.2.686 [id number] [facility] 2022-10-11 00:00:00 2022-10-11 00:00:00 Orders Only Doctor Unassigned, [place] [facility] 1.2.840.114 350.1.13.10 4.2.7.2.686 [id number] [facility] 2022-06-09 00:00:00 2022-06-09 00:00:00 Patient Secure Msg Elsa Aguirre Delores [facility] [employer] [facility] CHILD [facility] 1.840.114 350.1.13.10 4.2.7.2.686 [id number] [facility] 2022-06-06 00:00:00 2022-06-06 00:00:00 Case Management Elsa Aguirre Delores [facility] [employer] [facility] & CHILD [facility] 1..840.114 350.1.13.10 4.2.7.2.686 [id number] [facility] 2022-06-06 00:00:00 2022-06-06 00:00:00 Patient Secure Msg Elsa Aguirre [facility] [employer] [facility] & CHILD [facility] 1.840.114 350.1.13.10 4.2.7.2.686 [id number] [facility] 2022-06-03 14:30:00 2022-06-03 14:46:14 Outpatient R ELSA AGUIRRE [facility] [id number] [facility] 2022-06-03 14:30:00 2022-06-03 14:46:14 Office Visit Elsa Aguirre [facility] 1.840.114 350.1.13.10 4.2.7.2.686 [id number] [facility] 2022-06-02 00:00:00 2022-06-02 00:00:00 Patient Secure Msg Maurice Medeiros [facility] [employer] [facility] & CHILD [facility] .840.114 350.1.13.10 4.2.7.2.686 [id number] [facility] 2022-04-25 00:00:00 2022-04-25 00:00:00 Telephone Maurice Medeiros [facility] [employer] [facility] & CHILD [facility] 1.840.114 350.1.13.10 4.2.7.2.686 [id number] [facility] 2022-04-22 13:30:00 2022-04-22 14:45:48 Outpatient R MAURICE MEDEIROS [facility] [id number] [facility] 2022-04-22 13:30:00 2022-04-22 14:45:48 Office Visit Maurice Medeiros [facility] [employer] [facility] & CHILD [facility] 1.2.840.114 350.1.13.10 4.2.7.2.686 [id number] [facility] 2022-03-28 23:30:00 2022-03-29 00:41:00 Emergency X Tg GARCIA [facility] ERT [id number] [facility] 2022-03-28 23:30:00 2022-03-29 00:41:00 Emergency Tg Garcia [facility] 1.840.114 350.1.13.10 4.2.7.2.686 [id number] [facility] 2022-02-14 14:45:00 2022-02-14 15:39:17 Outpatient R MAURICE MEDEIROS [facility] [id number] [facility] 2022-02-14 14:45:00 2022-02-14 15:39:17 Office Visit Maurice Medeiros [facility] [employer] [facility] MATERNAL & CHILD [facility] 1.0.114 350.1.13.10 4.2.7.2.686 [id number] [facility] 2022-01-09 20:19:00 2022-01-09 21:43:00 Emergency X POLLY CUMMINGS [facility] ERT [id number] [facility] 2022-01-09 20:19:00 2022-01-09 21:43:00 Emergency Polly Cummings [facility] 1.840.114 350.1.13.10 4.2.7.2.686 [id number] [facility] 2022-01-09 00:00:00 2022-01-09 00:00:00 Orders Only Doctor Unassigned, [place] [facility] 1.2840.114 350.1.13.10 4.2.7.2.686 [id number] [facility] 2021-10-14 13:00:00 2021-10-14 13:00:00 Outpatient R DANIEL WOODS [facility] [id number] [facility] 2021-10-14 10:30:00 2021-10-14 11:17:43 Outpatient R JOE MÉNDEZ [facility] [id number] [facility] 2021-10-14 10:30:00 2021-10-14 11:17:43 [facility] Joe M[facility]dez [facility] [employer] [facility] MATERNAL & CHILD [facility] 1.2.840.114 350.1.13.10 4.2.7.2.686 [id number] [facility] 2021-09-24 00:00:00 2021-09-24 00:00:00 Refill Ambar Florence [facility] [employer] [facility] & CHILD [facility] 1.2.840.114 350.1.13.10 4.2.7.2.686 [id number] [facility] 2021-09-24 00:00:00 2021-09-24 00:00:00 Case Management Ambar Florence [facility] [employer] [facility] & CHILD [facility] 1.2.840.114 350.1.13.10 4.2.7.2.686 [id number] [facility] 2021-09-24 00:00:00 2021-09-24 00:00:00 Telephone Ambar Florence [facility] [employer] [facility] & CHILD [facility] 1.2.840.114 350.1.13.10 4.2.7.2.686 [id number] [facility] 2021-09-13 13:30:00 2021-09-13 13:30:00 Outpatient R [facility] [id number] [facility] 2021-09-13 13:30:00 2021-09-13 13:30:00 Outpatient R [facility] [id number] [facility] 2021-09-13 13:30:00 2021-09-13 13:30:00 Outpatient R [facility] [id number] [facility] 2021-09-13 13:30:00 2021-09-13 13:30:00 Outpatient R [facility] [id number] [facility] 2021-09-03 00:00:00 2021-09-03 00:00:00 Patient Secure Msg Lashawn Florenceyvette Guajardo [facility] [employer] [facility] & CHILD [facility] 1.2.840.114 350.1.13.10 4.2.7.2.686 [id number] [facility] 2021-09-01 15:15:00 2021-09-01 17:18:29 Outpatient R NAMANLASHAWNAMBAR [facility] [id number] [facility] 2021-09-01 15:15:00 2021-09-01 17:18:29 Office Visit NamanLashawnAmbar R [facility] [employer] [facility] & CHILD [facility] 1.2.840.114 350.1.13.10 4.2.7.2.686 [id number] [facility] 2021-09-01 15:15:00 2021-09-01 17:18:29 Outpatient R NAMANLASHAWNAMBAR [facility] [id number] [facility] 2021-09-01 15:15:00 2021-09-01 15:15:00 Outpatient R NAMANLASHAWNAMBAR [facility] [id number] [facility] 2021-09-01 10:30:00 2021-09-01 10:30:00 Outpatient R DANIEL WOODS [facility] [id number] [facility] 2021-09-01 10:30:00 2021-09-01 10:30:00 Outpatient R [facility] [id number] [facility] 2021-08-31 00:00:00 2021-08-31 00:00:00 Telephone Gabino Méndeza Rudolph [facility] [employer] [facility] MATERNAL & CHILD [facility] 1.2.840.114 350.1.13.10 4.2.7.2.686 [id number] [facility] 2021-08-18 00:00:00 2021-08-18 00:00:00 Telephone Maurice Medeiros [facility] [employer] [facility] & CHILD [facility] 1.2.840.114 350.1.13.10 4.2.7.2.686 [id number] [facility] 2021-08-17 00:00:00 2021-08-17 00:00:00 Telephone Maurice Medeiros [facility] [employer] [facility] & CHILD [facility] 1.2.840.114 350.1.13.10 4.2.7.2.686 [id number] [facility] 2021-08-17 00:00:00 2021-08-17 00:00:00 Telephone Maurice Medeiros [facility] [employer] [facility] & CHILD [facility] 1.2.840.114 350.1.13.10 4.2.7.2.686 [id number] [facility] 2021-08-09 00:00:00 2021-08-09 00:00:00 Patient Secure Msg Joe Méndez [facility] [employer] [facility] MATERNAL & CHILD [facility] 1.2.840.114 350.1.13.10 4.2.7.2.686 [id number] [facility] 2021-08-04 14:00:00 2021-08-04 14:52:58 Outpatient R MAURICE MEDEIROS [facility] [id number] [facility] 2021-08-04 14:00:00 2021-08-04 14:52:58 Outpatient R MAUIRCE MEDEIROS [facility] [id number] [facility] 2021-08-04 14:00:00 2021-08-04 14:52:58 Office Visit Maurice Medeiros [facility] [employer] [facility] MATERNAL & CHILD [facility] 1..114 350.1.13.10 4.2.7.2.686 [id number] [facility] 2021-08-04 14:00:00 2021-08-04 14:00:00 Outpatient R MAURICE MEDEIROS [facility] [id number] [facility] 2021-08-04 00:00:00 2021-08-04 00:00:00 Orders Only Doctor Unassigned, [place] [facility] .114 350.1.13.10 4.2.7.2.686 [id number] [facility] 2021-08-03 15:30:00 2021-08-03 15:30:00 Outpatient R MAURICE MEDEIROS [facility] [id number] [facility] 2021-08-03 15:00:00 2021-08-03 15:00:00 Outpatient R MAURICE MEDEIROS [facility] [id number] [facility] 2021-08-02 10:15:00 2021-08-02 10:15:00 Outpatient R ANNA MILLER [facility] [id number] [facility] 2021-07-26 00:00:00 2021-07-26 00:00:00 Anna Barnett [facility] [employer] [facility] MATERNAL & CHILD [facility] ..114 350.1.13.10 4.2.7.2.686 [id number] [facility] 2021-07-17 00:00:00 2021-07-17 00:00:00 Joe Danielson [facility] [employer] [facility] MATERNAL & CHILD [facility] ..114 350.1.13.10 4.2.7.2.686 [id number] [facility] 2021-07-12 00:00:00 2021-07-12 00:00:00 Patient Secure Joe Fernandez [facility] [employer] [facility] MATERNAL & CHILD [facility] 1..840.114 350.1.13.10 4.2.7.2.686 [id number] [facility] 2021-07-08 00:00:00 2021-07-08 00:00:00 Telephone Joe Méndez [facility] [employer] [facility] MATERNAL & CHILD [facility] 1..840.114 350.1.13.10 4.2.7.2.686 [id number] [facility] 2021-07-07 15:15:00 2021-07-07 16:19:47 Outpatient R JOE MÉNDEZ [facility] [id number] [facility] 2021-07-07 15:15:00 2021-07-07 16:19:47 Office Visit Joe Méndez [facility] [employer] [facility] & CHILD [facility] 1..840.114 350.1.13.10 4.2.7.2.686 [id number] [facility] 2021-07-07 07:45:00 2021-07-07 07:45:00 Outpatient R JOE MÉNDEZ [facility] [id number] [facility] 2021-07-07 00:00:00 2021-07-07 00:00:00 Patient Secure Joe Fernandez [facility] [employer] [facility] & CHILD [facility] 1..840.114 350.1.13.10 4.2.7.2.686 [id number] [facility] 2021-07-05 15:15:00 2021-07-05 15:15:00 Outpatient R HONEYJOE [facility] [id number] [facility] 2021-07-05 00:00:00 2021-07-05 00:00:00 Telephone Maurice Medeiros [facility] [employer] [facility] CHILD [facility] 1.2.840.114 350.1.13.10 4.2.7.2.686 [id number] [facility] 2021-06-18 00:00:00 2021-06-18 00:00:00 Patient Secure Msg Maurice Medeiros [facility] [employer] [facility] 1.2.840.114 350.1.13.10 4.2.7.2.686 [id number] [facility] 2021-06-16 13:00:00 2021-06-16 16:01:49 Nurse Visit Visit, Eddie-Rmp Nurse Maurice Medeiros [facility] [employer] [facility] CHILD [facility] 1.2.840.114 350.1.13.10 4.2.7.2.686 [id number] [facility] 2021-06-16 13:00:00 2021-06-16 13:00:00 Outpatient R MAURICE MEDEIROS [facility] [id number] [facility] 2021-06-15 00:00:00 2021-06-15 00:00:00 Telephone Maurice Medeiros [facility] [employer] [facility] CHILD [facility] 1.2.840.114 350.1.13.10 4.2.7.2.686 [id number] [facility] 2021-06-14 12:45:00 2021-06-14 13:43:02 Outpatient R MAURICE MEDEIROS [facility] [id number] [facility] 2021-06-14 12:45:00 2021-06-14 13:43:02 Office Visit Maurice MedeirosMB [employer] [facility] & [facility] 1..840.114 350.1.13.10 4.2.7.2.686 [id number] [facility] 2021-06-14 12:45:00 2021-06-14 13:43:02 Outpatient R MAURICE MEDEIROS [facility] [id number] [facility] 2021-05-12 00:00:00 2021-05-12 00:00:00 Telephone Anna Miller [facility] [employer] [facility] MATERNAL & CHILD [facility] .840.114 350.1.13.10 4.2.7.2.686 [id number] [facility] 2021-04-16 10:30:00 2021-04-16 10:30:59 Outpatient R ELI WOODSON [facility] [id number] [facility] 2021-04-16 10:06:33 2021-04-16 10:30:59 Cardiovascular Lab Director Visit Lab, [facility] [employer] [facility] .840.114 350.1.13.10 4.2.7.2.686 [id number] [facility] 2021-04-07 00:00:00 2021-04-07 00:00:00 Telephone [facility] [facility] [employer] [employer] [facility] CHILD [facility] LEN[facility] 1..840.114 350.1.13.10 4.2.7.2.686 [id number] [facility] 2020-12-22 00:00:00 2020-12-22 00:00:00 [facility] [facility] & CHILD [facility] ANGELES 1..840.114 350.1.13.10 4.2.7.2.686 [id number] [facility] 2020-12-18 12:50:15 2020-12-18 13:53:35 Office Visit Eli Woodson [facility] [employer] [facility]ILD [facility] 1.2.840.114 350.1.13.10 4.2.7.2.686 [id number] [facility] 2020-12-18 12:45:00 2020-12-18 12:45:00 Outpatient ELI HUTCHINSON [facility] [id number] [facility] 2020-11-04 23:15:00 2020-11-04 23:54:00 Emergency EM Burak [facility] [id number] [facility] 2020-08-21 13:31:16 2020-08-21 13:47:47 Cardiovascular Lab Director Visit Lab, Zenonalma [facility] [employer] [facility] & CHILD [facility] [place] 1..840.114 350.1.13.10 4.2.7.2.686 [id number] 2020-08-21 13:31:16 2020-08-21 13:47:47 Cardiovascular Lab Director Visit Lab, ZenonJoe De Los Santos [facility] [employer] [facility] & CHILD [facility] [place] 1.2.840.114 350.1.13.10 4.2.7.2.686 [id number] [facility] 2020-08-21 13:30:00 2020-08-21 13:30:00 Outpatient JOE TANG [facility] [id number] [facility] 2020-08-21 00:00:00 2020-08-21 00:00:00 Telephone Juju Penn [facility] [employer] [facility] 1.2.840.114 350.1.13.10 4.2.7.2.686 [id number] 2020-08-21 00:00:00 2020-08-21 00:00:00 Telephone Juju Penn [facility] [employer] [facility] [place] 1.84.114 350.1.13.10 4.2.7.2.686 [id number] [facility] 2020-08-06 10:30:00 2020-08-06 10:30:00 Outpatient DANIEL CHEN [facility] [id number] [facility] 2020-08-06 09:00:00 2020-08-06 09:00:00 Outpatient DANIEL CHEN [facility] [id number] [facility] 2020-08-04 09:43:12 2020-08-04 11:32:00 Office Visit Juju Penn [facility] [employer] [facility] [place] 1..114 350.1.13.10 4.2.7.2.686 [id number] 110 [id number] 2020-08-04 09:43:12 2020-08-04 11:32:00 Office Visit Juju Penn [facility] [employer] [facility] [place] 1..114 350.1.13.10 4.2.7.2.686 [id number] [facility] 2020-08-04 10:00:00 2020-08-04 10:00:00 Outpatient JUJU COLLIER [facility] [id number] [facility] 2020-08-04 00:00:00 2020-08-04 00:00:00 Orders Only Doctor Unassigned, [place] [facility] 1.114 350.1.13.10 4.2.7.2.686 [id number] [facility] 2020-08-04 00:00:00 2020-08-04 00:00:00 Patient Outreach Esteban Mclean [facility] 1.2.840.114 350.1.13.10 4.2.7.2.686 [id number] [facility] 2020-08-04 00:00:00 2020-08-04 00:00:00 Patient Outreach Vinay Esteban Anderson [facility] 1.2840.114 350.1.13.10 4.2.7.2.686 [id number] 2020-07-27 00:00:00 2020-07-27 00:00:00 Refill Juju Penn [facility] [employer] [facility] [place] 1.2840.114 350.1.13.10 4.2.7.2.686 [id number] [facility] 2020-04-28 00:00:00 2020-04-28 00:00:00 Patient Secure Msg Doctor Unassigned, [place] [facility] [employer] [facility] [place] 1.0.114 350.1.13.10 4.2.7.2.686 [id number] [facility] 2020-04-28 00:00:00 2020-04-28 00:00:00 Telephone uJju Penn [facility] [employer] [facility] 1.2840.114 350.1.13.10 4.2.7.2.686 [id number] [facility] 2020-04-27 09:49:52 2020-04-27 10:04:52 Cardiovascular Lab Director Visit Lab, Con-Rmchp Beéln Omer [facility] [employer] [facility] 1..114 350.1.13.10 4.2.7.2.686 [id number] [facility] 2020-04-27 09:45:00 2020-04-27 09:45:00 Outpatient R BELÉN OMER [facility] [id number] [facility] 2020-04-27 09:30:00 2020-04-27 09:30:00 Outpatient R [facility] [id number] [facility] 2020-04-24 00:00:00 2020-04-24 00:00:00 Patient Secure Msg Doctor Unassigned, [place] [facility] [employer] [facility] CH[facility] 1.2.840.114 350.1.13.10 4.2.7.2.686 [id number] [facility] 2020-04-24 00:00:00 2020-04-24 00:00:00 Telephone Juju Penn [facility] [employer] [facility] CH[facility] 1.2840.114 350.1.13.10 4.2.7.2.686 [id number] [facility] 2020-04-21 09:00:41 2020-04-21 09:58:28 Office Visit Juju Penn [facility] [employer] [facility] CH[facility] 1.840.114 350.1.13.10 4.2.7.2.686 [id number] 110 [id number] [facility] 2020-04-21 09:00:00 2020-04-21 09:00:00 Outpatient R JUJU PENN [facility] [id number] [facility] 2020-04-17 00:00:00 2020-04-17 00:00:00 Telephone Daniel Woods [facility] [employer] [facility] & CHILD [facility] 1.840.114 350.1.13.10 4.2.7.2.686 [id number] [facility] 2020-03-24 00:00:00 2020-03-24 00:00:00 Telephone Daniel Woods [facility] [employer] [facility] 1.2.840.114 350.1.13.10 4.2.7.2.686 [id number] 107 [id number] [facility] 2020-03-17 00:00:00 2020-03-17 00:00:00 Telephone Daniel Woods [facility] [employer] [facility] CHILD [facility] 1..840.114 350.1.13.10 4.2.7.2.686 [id number] [facility] 2020-03-16 10:16:16 2020-03-16 11:30:13 Office Visit Daniel Woods [facility] [employer] [facility] 1..840.114 350.1.13.10 4.2.7.2.686 [id number] 107 [id number] [facility] 2020-03-16 10:30:00 2020-03-16 10:30:00 Outpatient R DANIEL WOODS [facility] [id number] [facility] 2020-02-10 09:15:00 2020-02-10 09:15:00 Outpatient R MAURICE MEDEIROS [facility] [id number] [facility] 2020-01-31 03:46:00 2020-01-31 03:46:00 Outpatient sharyn [facility] [id number] [facility] 2020-01-27 00:00:00 2020-01-27 00:00:00 Telephone Maurice Medeiros [facility] [employer] [facility] 1..840.114 350.1.13.10 4.2.7.2.686 [id number] [facility] 2020-01-27 00:00:00 2020-01-27 00:00:00 Telephone Daniel Woods [facility] [employer] [facility] 1.2.840.114 350.1.13.10 4.2.7.2.686 [id number] [facility] 2020-01-25 00:00:00 2020-01-25 00:00:00 Telephone Daniel Woods [facility] [employer] [facility] 1..114 350.1.13.10 4.2.7.2.686 [id number] 107 [id number] [facility] 2020-01-23 09:04:57 2020-01-23 10:09:24 Office Visit Maurice Medeiros [facility] [employer] [facility] 1.0.114 350.1.13.10 4.2.7.2.686 [id number] [facility] 2020-01-23 08:45:00 2020-01-23 08:45:00 Outpatient R MAURICE MEDEIROS [facility] [id number] [facility] 2020-01-17 08:30:00 2020-01-17 08:30:00 Outpatient R MAURICE MEDEIROS [facility] [id number] [facility] 2020-01-16 00:00:00 2020-01-16 00:00:00 Telephone Daniel Woods [facility] [employer] [facility] CHILD [facility] ..114 350.1.13.10 4.2.7.2.686 [id number] 107 [id number] [facility] 2019-12-10 00:00:00 2019-12-10 00:00:00 Telephone Daniel Woods [facility] [employer] [facility] ..114 350.1.13.10 4.2.7.2.686 [id number] 107 [id number] [facility] 2019-12-02 08:30:00 2019-12-02 08:30:00 Outpatient R DANIEL WOODS [facility] [id number] [facility] 2019-11-29 00:00:00 2019-11-29 00:00:00 Patient Secure Msg Doctor Unassigned, [place] [facility] [employer] [facility] 1..114 350.1.13.10 4.2.7.2.686 [id number] 107 [id number] [facility] 2019-11-29 00:00:00 2019-11-29 00:00:00 Telephone Daniel Woods [facility] [employer] [facility] 1.2.840.114 350.1.13.10 4.2.7.2.686 [id number] [facility] 2019-11-28 12:53:44 2019-11-28 13:08:44 Office Visit Daniel Woods [facility] [employer] [facility] 1..840.114 350.1.13.10 4.2.7.2.686 [id number] 107 [id number] [facility] 2019-11-28 12:45:00 2019-11-28 12:45:00 Outpatient R NEHEMIAS WOODSTYRON [facility] [id number] [facility] 2019-11-25 07:45:00 2019-11-25 07:45:00 Outpatient R NEHEMIAS WOODSTYRON [facility] [id number] [facility] 2019-11-13 00:00:00 2019-11-13 00:00:00 Patient Secure Msg Daniel Woods [facility] [employer] [facility] CH[facility] 1..840.114 350.1.13.10 4.2.7.2.686 [id number] [facility] 2019-11-13 00:00:00 2019-11-13 00:00:00 Refill Doctor Unassigned, [place] [facility] [employer] [facility] 1..840.114 350.1.13.10 4.2.7.2.686 [id number] 107 [id number] [facility] 2019-10-31 10:15:00 2019-10-31 10:15:00 Outpatient R NEHEMIAS WOODSTYRON [facility] [id number] [facility] 2019-08-29 18:58:21 2019-08-29 19:59:00 Emergency Maria A Knutson [facility] 1.2.840.114 350.1.13.10 4.2.7.2.686 [id number] [facility] 2019-08-27 00:00:00 2019-08-27 00:00:00 Telephone Daniel Woods [facility] [employer] [facility] CHILD [facility] 1.2.840.114 350.1.13.10 4.2.7.2.686 [id number] 107 [id number] [facility] 2019-08-27 00:00:00 2019-08-27 00:00:00 Patient Secure Msg Doctor Unassigned, [place] [facility] [employer] [facility] CH[facility] 1.2.840.114 350.1.13.10 4.2.7.2.686 [id number] [facility] 2019-08-26 00:00:00 2019-08-26 00:00:00 Telephone Daniel Woods [facility] [employer] [facility] 1.2.840.114 350.1.13.10 4.2.7.2.686 [id number] [facility] 2019-08-22 00:00:00 2019-08-22 00:00:00 Telephone Daniel Woods [facility] [employer] [facility] 1.2.840.114 350.1.13.10 4.2.7.2.686 [id number] [facility] 2019-08-20 11:00:00 2019-08-20 11:00:00 Outpatient R DANIEL WOODS [facility] [id number] [facility] 2019-08-20 07:57:30 2019-08-20 10:27:34 Telemedici ne Visit Daniel Woods [facility] [employer] [facility] 1.2.840.114 350.1.13.10 4.2.7.2.686 [id number] 107 [id number] [facility] 2019-08-13 00:00:00 2019-08-13 00:00:00 Telephone Daniel Woods [facility] [employer] [facility] 1.2.840.114 350.1.13.10 4.2.7.2.686 [id number] 107 [id number] [facility] 2019-08-01 13:20:13 2019-08-01 15:32:19 Office Visit Daniel Woods [facility] [employer] [facility] 1.2840.114 350.1.13.10 4.2.7.2.686 [id number] [facility] 2019-08-01 14:30:00 2019-08-01 14:30:00 Outpatient R NEHEMIAS WOODSTYRON [facility] [id number] [facility] 2019-08-01 13:30:00 2019-08-01 13:30:00 Outpatient R NEHEMIAS WOODSTYRON [facility] [id number] [facility] 2019-08-01 09:30:00 2019-08-01 09:30:00 Outpatient NEHEMIAS CHENRICHIEJAMISON [facility] [id number] [facility] 2019-07-25 12:45:00 2019-07-25 12:45:00 Outpatient R DANIEL WOODS [facility] [id number] [facility] 2019-07-19 15:09:50 2019-07-19 15:49:40 Office Visit Daniel Woods [facility] [employer] [facility] 1.2.840.114 350.1.13.10 4.2.7.2.686 [id number] [facility] 2019-07-19 15:15:00 2019-07-19 15:15:00 Outpatient R DANIEL WOODS [facility] [id number] [facility] 2019-07-19 00:00:00 2019-07-19 00:00:00 Orders Only Doctor Unassigned, [place] [facility] 1.2.840.114 350.1.13.10 4.2.7.2.686 [id number] [facility] 2019-07-18 14:52:23 2019-07-18 16:43:00 Emergency Tg Garcia [facility] 1.2.840.114 350.1.13.10 4.2.7.2.686 [id number] [facility] 2019-07-18 00:00:00 2019-07-18 00:00:00 Orders Only Doctor Unassigned, [place] [facility] 1.2.840.114 350.1.13.10 4.2.7.2.686 [id number] [facility] 2019-06-24 16:16:00 2019-06-24 16:16:00 Emergency E MHBL MHBL 7501 MHBL Results Test Description Test Time Test Comments Results Result Co mments Source [facility] URINALYSIS W/O SPECIFIC [id number] 12:07:00* Test Item Value Reference Range Interpretation Comme nts POCT PH U (test code = 3254) 5 mg/dl 5-8 POCT U LEUK EST (test code = 3263) 1+ Negative - Negative POCT U NIT (test code = 3262) negative Negative - Negati ve POCT U PROT (test code = 3259) trace Negative - Negat rosa POCT U GLU (test code = 3256) negative Negative - Negati ve POCT U KETONE (test code = 3258) negative Negative - Neg ative POCT U BLD (test code = 3257) negative Negative - Negati ve Lab Interpretation (test cod e = 84174-0) Abnormal [facility] URINALYSIS W/O SPECIFIC [id number] 12:07:00* Test Item Value Reference Range Interpretation Comme nts POCT PH U (test code = 3254) 5 mg/dl 5-8 POCT U LEUK EST (test code = 3263) 1+ Negative - Negative POCT U NIT (test code = 3262) negative Negative - Negati ve POCT U PROT (test code = 3259) trace Negative - Negat rosa POCT U GLU (test code = 3256) negative Negative - Negati ve POCT U KETONE (test code = 3258) negative Negative - Neg ative POCT U BLD (test code = 3257) negative Negative - Negati ve Lab Interpretation (test cod e = 59064-2) Abnormal [facility] URINALYSIS W/O SPECIFIC [id number] 12:07:00* Test Item Value Reference Range Interpretation Comme nts POCT PH U (test code = 3254) 5 mg/dl 5-8 POCT U LEUK EST (test code = 3263) 1+ Negative - Negative POCT U NIT (test code = 3262) negative Negative - Negati ve POCT U PROT (test code = 3259) trace Negative - Negat rosa POCT U GLU (test code = 3256) negative Negative - Negati ve POCT U KETONE (test code = 3258) negative Negative - Neg ative POCT U BLD (test code = 3257) negative Negative - Negati ve Lab Interpretation (test cod e = 28039-9) Abnormal [facility] URINALYSIS W/O SPECIFIC [id number] 12:07:00* Test Item Value Reference Range Interpretation Comme nts POCT PH U (test code = 3254) 5 mg/dl 5-8 POCT U LEUK EST (test code = 3263) 1+ Negative - Negative POCT U NIT (test code = 3262) negative Negative - Negati ve POCT U PROT (test code = 3259) trace Negative - Negat rosa POCT U GLU (test code = 3256) negative Negative - Negati ve POCT U KETONE (test code = 3258) negative Negative - Neg ative POCT U BLD (test code = 3257) negative Negative - Negati ve Lab Interpretation (test cod e = 98880-0) Abnormal [facility] [id number] 16:44:00* Test Item Value Reference Range Interpretation Comme nts POCT PREG (test code = 1605) Negative On board controls acceptable with C Line (test code = 3574) Yes POCT PREG LOT # (test code = 3575) POCT PREG TEST DATE ( test code = 3576) [facility] [id number] 16:44:00* Test Item Value Reference Range Interpretation Comme nts POCT PREG (test code = 1605) Negative On board controls acceptable with C Line (test code = 3574) Yes POCT PREG LOT # (test code = 3575) POCT PREG TEST DATE ( test code = 3576) [facility] [id number] 16:44:00* Test Item Value Reference Range Interpretation Comme nts POCT PREG (test code = 1605) Negative On board controls acceptable with C Line (test code = 3574) Yes POCT PREG LOT # (test code = 3575) POCT PREG TEST DATE ( test code = 3576) [facility] [id number] 20:22:00* Test Item Value Reference Range Interpretation Comme nts POCT PREG (test code = 1605) Negative On board controls acceptable with C Line (test code = 3574) Yes POCT PREG LOT # (test code = 3575) POCT PREG TEST DATE ( test code = 3576) [facility] [id number] 20:22:00* Test Item Value Reference Range Interpretation Comme nts POCT PREG (test code = 1605) Negative On board controls acceptable with C Line (test code = 3574) Yes POCT PREG LOT # (test code = 3575) POCT PREG TEST DATE ( test code = 3576) [facility] [id number] 20:22:00* Test Item Value Reference Range Interpretation Comme nts POCT PREG (test code = 1605) Negative On board controls acceptable with C Line (test code = 3574) Yes POCT PREG LOT # (test code = 3575) POCT PREG TEST DATE ( test code = 3576) [facility] [id number] 19:02:00* Test Item Value Reference Range Interpretation Comme nts POCT PREG (test code = 1605) Negative On board controls acceptable with C Line (test code = 3574) Yes POCT PREG LOT # (test code = 3575) PO[facility] PREG TEST DATE ( test code = 3576[id number]:04:00* Test Item Value Reference Range Interpretation Comme nts POCT PREG (test code = 1605) Negative On board controls acceptable with C Line (test code = 3574) Yes POCT PREG LOT # (test code = 3575) POCT PREG TEST DATE ( test code = 3576) [facility] [id number] 22:04:00* Test Item Value Reference Range Interpretation Comme nts POCT PREG (test code = 1605) Negative On board controls acceptable with C Line (test code = 3574) Yes POCT PREG LOT # (test code = 3575) POCT PREG TEST DATE ( test code = 3576) [facility] ABDOMEN [id number] 17:12:00 [facility] : 2000 Sex: FPatient Name: TONIA SMITH Unit No: [id number] EXAMS: CPT: [id number] US ABDOMEN LTD [id number] History: RUQ EPIGASTRIC PAIN Limited abdominal ultrasound FINDINGS: Real-time sonographic examination was performed. The liver is increase in echogenicity consistent with fatty infiltration. No focal liver lesion is seen. Hepatopedal flow is present in the portal vein. No intrahepatic biliary duct dilatationis identified. The common bile duct measures 0.3 cm and is within normal limits. No gallstones, gallbladder wall thickening or pericholecystic fluid is present. The visualized pancreas is unremarkable. The right kidney is normal in size and echotexture. No right hydronephrosis is present. IMPRESSION: 1. Fatty infiltration of the liver. at 1712 Reported and signed by: Bernardino Gambino MD CC: Trudy Ding Technologist:NIGHAT Figueroa Probe: Trscr Dt/Tm: 06/10/2020 (1712) by:[email or web address] Orig Print D/T: S: 06/10/2020 (171) BATCH NO: N/A Name: DMITRI SMITHEfrain [facility] Phys: Trudy Taylor [address] [facility] : 2000 Age: 19 Sex: F [place] [id number] Loc: N.ERS Exam Date: 06/10/2020 Status: PRE ER PH: FAX: PAGE 1 Signed ReportUA RFLX MICR CULT IF [id number] 14:48:00* Test Item Value Reference Range Interpretation Comme nts UA COLOR (test code = COLU) YELLOW YELLOW UA APPEARANCE (test code = APPU) HAZY CLEAR UA GLUCOSE DIPSTICK (test co de = DGLUU) NEGATIVE NEGATIVE UA BILIRUBIN DIPSTICK (test code = BILU) NEGATIVE NEGATIVE UA KETONE DIPSTICK (test cod e = KETU) NEGATIVE NEGATIVE UA SPECIFIC GRAVITY (test co de = SGU) 1.019 1.001-1.030 UA BLOOD DIPSTICK (test code = JAROCHO) 3+ NEGATIVE UA PH DIPSTICK (test code = YOLIE) 5.0 5.0-9.0 UA PROTEIN DIPSTICK (test co de = PROU) NEGATIVE NEGATIVE UA UROBILINOGEN DIPSTICK (te st code = URO) NEGATIVE <=1.0 UA NITRITE DIPSTICK (test co de = RUSLAN) NEGATIVE NEGATIVE UA ASCORBIC ACID DIPSTICK (t est code = AAU) NEGATIVE UA LEUKOCYTE ESTERASE DIPSTI CK (test code = LEUU) NEGATIVE NEGATIVE UA WBC (test code = WBCUR) 0-5 /HPF 0-5 UA RBC (test code = RBCU) 21-50 /HPF 0-5 UA EPITHELIAL CELLS (test co de = EPIU) FEW /LPF NONE-FEW UA BACTERIA (test code = BACU) None /HPF NONE SEEN UA MUCUS (test code = MUCU) 1+ /LPF NONE SEEN Indication for culture: Suprapubic PainSpecimen Description: CLEAN CATCHBASIC METABOLIC [id number] 14:35:00* Test Item Value Reference Range Interpretation Comme nts SODIUM (test code = NA) 139 mmol/L 135-145 N POTASSIUM (test code = K) 4.0 mmol/L 3.6-5.0 N CHLORIDE (test code = CL) 105 mmol/L 101-111 N CARBON DIOXIDE (test code = CO2) 23 mmol/L 21-31 N GLUCOSE (test code = GLU) 102 mg/dl 70-100 H BLOOD UREA NITROGEN (test code = BUN) 11 mg/dl 6-20 N GLOMERULAR FILTRATION RATE (test code = GFR) >=60 max estimate >60 The estimated glomerular filtration rate is computed usingpatient race, age (>18), sex, and serum creatinine. If anyof the needed data elements are missing the Laboratory cannot compute an estimation of the glomerular filtration rate. CREATININE (test code = CREAT) 0.82 mg/dL 0.44-1.03 N CALCIUM (test code = CA) 9.2 mg/dL 8.5-10.5 N LIVER FUNCTION [id number] 14:35:00* Test Item Value Reference Range Interpretation Comme nts TOTAL PROTEIN (test code = PROT) 7.8 g/dL 6.7-8.2 N ALBUMIN (test code = ALB) 4.2 g/dL 3.2-5.5 N BILIRUBIN TOTAL (test code = BILT) 0.90 mg/dL 0.2-1.3 N BILIRUBIN DIRECT (test code = BILD) 0.1 mg/dL 0.00-0.20 N SGOT/AST (test code = AST) 34 U/L 10-42 N SGPT/ALT (test code = ALT) 40 U/L 10-60 N ALKALINE PHOSPHATASE (test c ode = ALKP) 63 U/L 42-121 N [id number] 14:35:00* Test Item Value Reference Range Interpretation Comme nts LIPASE (test code = LIP) 28 IU/L 22-51 N BASIC METABOLIC [id number] 14:29:00* Test Item Value Reference Range Interpretation Comme nts SODIUM (test code = NA) 139 mmol/L 135-145 N POTASSIUM (test code = K) 4.0 mmol/L 3.6-5.0 N CHLORIDE (test code = CL) 105 mmol/L 101-111 N CARBON DIOXIDE (test code = CO2) 23 mmol/L 21-31 N GLUCOSE (test code = GLU) 102 mg/dl 70-100 H BLOOD UREA NITROGEN (test code = BUN) 11 mg/dl 6-20 N GLOMERULAR FILTRATION RATE (test code = GFR) >=60 max estimate >60 The estimated glomerular filtration rate is computed usingpatient race, age (>18), sex, and serum creatinine. If anyof the needed data elements are missing the Laboratory cannot compute an estimation of the glomerular filtration rate. CREATININE (test code = CREAT) 0.82 mg/dL 0.44-1.03 N CALCIUM (test code = CA) 9.2 mg/dL 8.5-10.5 N LIVER FUNCTION [id number] 14:29:00* Test Item Value Reference Range Interpretation Comme nts TOTAL PROTEIN (test code = PROT) g/dL 6.7-8.2 ALBUMIN (test code = ALB) g/dL 3.2-5.5 BILIRUBIN TOTAL (test code = BILT) mg/dL 0.2-1.3 BILIRUBIN DIRECT (test code = BILD) mg/dL 0.00-0.20 SGOT/AST (test code = AST) U/L 10-42 SGPT/ALT (test code = ALT) U/L 10-60 ALKALINE PHOSPHATASE (test code = ALKP) U/L 42-121 [id number] 14:29:00* Test Item Value Reference Range Interpretation Comme nts LIPASE (test code = LIP) IU/L 22-51 BASIC METABOLIC [id number] 14:29:00* Test Item Value Reference Range Interpretation Comme nts SODIUM (test code = NA) 139 mmol/L 135-145 N POTASSIUM (test code = K) 4.0 mmol/L 3.6-5.0 N CHLORIDE (test code = CL) 105 mmol/L 101-111 N CARBON DIOXIDE (test code = CO2) 23 mmol/L 21-31 N GLUCOSE (test code = GLU) 102 mg/dl 70-100 H BLOOD UREA NITROGEN (test code = BUN) 11 mg/dl 6-20 N GLOMERULAR FILTRATION RATE (test code = GFR) >=60 max estimate >60 The estimated glomerular filtration rate is computed usingpatient race, age (>18), sex, and serum creatinine. If anyof the needed data elements are missing the Laboratory cannot compute an estimation of the glomerular filtration rate. CREATININE (test code = CREAT) 0.82 mg/dL 0.44-1.03 N CALCIUM (test code = CA) 9.2 mg/dL 8.5-10.5 N LIVER FUNCTION [id number] 14:29:00* Test Item Value Reference Range Interpretation Comme nts TOTAL PROTEIN (test code = PROT) 7.8 g/dL 6.7-8.2 N ALBUMIN (test code = ALB) 4.2 g/dL 3.2-5.5 N BILIRUBIN TOTAL (test code = BILT) mg/dL 0.2-1.3 BILIRUBIN DIRECT (test code = BILD) mg/dL 0.00-0.20 SGOT/AST (test code = AST) U/L 10-42 SGPT/ALT (test code = ALT) U/L 10-60 ALKALINE PHOSPHATASE (test c ode = ALKP) U/L 42-121 [id number] 14:29:00* Test Item Value Reference Range Interpretation Comme nts LIPASE (test code = LIP) 28 IU/L 22-51 N HCG SERUM [id number] 14:22:00* Test Item Value Reference Range Interpretation Comme nts HCG SERUM QUAL (test code = HCGQL) NEGATIVE NEGATIVE This is a qu alitative screening test.The quantitative Bhcg may be helpful.Weakly positive results should be repeated in 48 hours. CBC W/AUTO [id number] 14:13:00* Test Item Value Reference Range Interpretation Comme nts WHITE BLOOD CELL (test code = WBC) 6.3 x10 3/uL 3.2-11.5 N RED BLOOD CELL (test code = RBC) 5.25 x10(6)/m 3.70-5.10 H HEMOGLOBIN (test code = HGB) 13.3 g/dL 12.0-15.0 N HEMATOCRIT (test code = HCT) 44.1 % 35.7-44.8 N MEAN CELL VOLUME (test code = MCV) 84 fL 80-100 N MEAN CELL HGB (test code = MCH) 25.3 pg 26.2-33.8 L MEAN CELL HGB CONCENTRATION (test code = MCHC) 30.2 g/dL 30.0-34.0 N RED CELL DISTRIBUTION WIDTH (test code = RDW) % 11.3-14.5 PLATELET COUNT (test code = PLT) x10 3/uL 130-408 MEAN PLATELET VOLUME (test c ode = MPV) 9.6 fL 8.6-12.6 N NEUTROPHIL % (test code = NT%) % 40.0-70.0 LYMPHOCYTE % (test code = LY%) % 20-40 MONOCYTE % (test code = MO%) % 1-10 EOSINOPHIL % (test code = EO%) % 0.0-5.0 BASOPHIL % (test code = BA%) % 0.0-1.0 NUCLEATED RBC % (test code = NRBC%) % 0.0-0.9 NEUTROPHIL # (test code = NT#) x10 3/uL 1.6-7.2 LYMPHOCYTE # (test code = LY#) x10 3/uL 1.1-2.7 MONOCYTE # (test code = MO#) x10 3/uL 0.3-0.8 EOSINOPHIL # (test code = EO#) x10 3/uL 0.0-0.5 CBC W/AUTO [id number] 14:13:00* Test Item Value Reference Range Interpretation Comme nts WHITE BLOOD CELL (test code = WBC) 6.3 x10 3/uL 3.2-11.5 N RED BLOOD CELL (test code = RBC) 5.25 x10(6)/m 3.70-5.10 H HEMOGLOBIN (test code = HGB) 13.3 g/dL 12.0-15.0 N HEMATOCRIT (test code = HCT) 44.1 % 35.7-44.8 N MEAN CELL VOLUME (test code = MCV) 84 fL 80-100 N MEAN CELL HGB (test code = MCH) 25.3 pg 26.2-33.8 L MEAN CELL HGB CONCENTRATION (test code = MCHC) 30.2 g/dL 30.0-34.0 N RED CELL DISTRIBUTION WIDTH (test code = RDW) 13.3 % 11.3-14.5 N PLATELET COUNT (test code = PLT) 295 x10 3/uL 130-408 N MEAN PLATELET VOLUME (test c ode = MPV) 9.6 fL 8.6-12.6 N NEUTROPHIL % (test code = NT%) 52.4 % 40.0-70.0 N IMMATURE GRANULOCYTE % (test code = IG%) 0.2 % 0.0-2.0 N LYMPHOCYTE % (test code = LY%) 38.4 % 20-40 N MONOCYTE % (test code = MO%) 6.3 % 1-10 N EOSINOPHIL % (test code = EO%) 2.1 % 0.0-5.0 N BASOPHIL % (test code = BA%) 0.6 % 0.0-1.0 N NUCLEATED RBC % (test code = NRBC%) 0.0 % 0.0-0.9 N NEUTROPHIL # (test code = NT#) 3.3 x10 3/uL 1.6-7.2 N LYMPHOCYTE # (test code = LY#) 2.42 x10 3/uL 1.1-2.7 N MONOCYTE # (test code = MO#) 0.4 x10 3/uL 0.3-0.8 N EOSINOPHIL # (test code = EO#) 0.1 x10 3/uL 0.0-0.5 N BASOPHIL # (test code = BA#) 0.0 x10 3/uL 0.0-0.1 N URINALYSIS [id number] 17:53:00* Test Item Value Reference Range Interpretation Comme nts UA COLOR (test code = COLU) YELLOW YELLOW UA APPEARANCE (test code = APPU) HAZY CLEAR UA GLUCOSE DIPSTICK (test code = DGLUU) NEGATIVE NEGATIVE UA BILIRUBIN DIPSTICK (test code = BILU) NEGATIVE NEGATIVE UA KETONE DIPSTICK (test code = KETU) NEGATIVE NEGATIVE UA SPECIFIC GRAVITY (test code = SGU) 1.027 1.001-1.030 UA BLOOD DIPSTICK (test code = JAROCHO) 1+ NEGATIVE UA PH DIPSTICK (test code = YOLIE) 5.0 5.0-9.0 UA PROTEIN DIPSTICK (test code = PROU) 1+ NEGATIVE A UA UROBILINOGEN DIPSTICK (test code = URO) 2.0 <=1.0 A UA NITRITE DIPSTICK (test code = RUSLAN) NEGATIVE NEGATIVE UA ASCORBIC ACID DIPSTICK (test code = AAU) POSITIVE A High levels of a scorbic acid may cause false negativeresults for blood, glucose & nitrite. UA LEUKOCYTE ESTERASE DIPSTICK (test code = LEUU) NEGATIVE NEGATIVE UA WBC (test code = WBCU) 0-5 /HPF 0-5 UA RBC (test code = RBCU) 11-20 /HPF 0-5 UA EPITHELIAL CELLS (test code = EPIU) OCC /LPF NONE-FEW UA BACTERIA (test code = BACU) None /HPF NONE SEEN UA MUCUS (test code = MUCU) 2+ /LPF NONE SEEN BASIC METABOLIC [id number] 17:50:00* Test Item Value Reference Range Interpretation Comme nts SODIUM (test code = NA) 137 mmol/L 135-145 N POTASSIUM (test code = K) 3.9 mmol/L 3.6-5.0 N CHLORIDE (test code = CL) 106 mmol/L 101-111 N CARBON DIOXIDE (test code = CO2) 23 mmol/L 21-31 N GLUCOSE (test code = GLU) 93 mg/dl 70-100 N BLOOD UREA NITROGEN (test code = BUN) 11 mg/dl 6-20 N GLOMERULAR FILTRATION RATE (test code = GFR) >=60 max estimate >60 The estimated glomerular filtration rate is computed usingpatient race, age (>18), sex, and serum creatinine. If anyof the needed data elements are missing the Laboratory cannot compute an estimation of the glomerular filtration rate. CREATININE (test code = CREAT) 0.96 mg/dL 0.44-1.03 N CALCIUM (test code = CA) 9.3 mg/dL 8.5-10.5 N LIVER FUNCTION [id number] 17:50:00* Test Item Value Reference Range Interpretation Comme nts TOTAL PROTEIN (test code = PROT) 8.4 g/dL 6.7-8.2 H ALBUMIN (test code = ALB) 4.2 g/dL 3.2-5.5 N BILIRUBIN TOTAL (test code = BILT) 0.80 mg/dL 0.2-1.3 N BILIRUBIN DIRECT (test code = BILD) 0.2 mg/dL 0.00-0.20 N SGOT/AST (test code = AST) 27 U/L 10-42 N SGPT/ALT (test code = ALT) 25 U/L 10-60 N ALKALINE PHOSPHATASE (test c ode = ALKP) 66 U/L 42-121 N HCG SERUM [id number] 17:42:00* Test Item Value Reference Range Interpretation Comme nts HCG SERUM QUAL (test code = HCGQL) NEGATIVE NEGATIVE This is a qu alitative screening test.The quantitative Bhcg may be helpful.Weakly positive results should be repeated in 48 hours. BASIC METABOLIC [id number] 17:42:00* Test Item Value Reference Range Interpretation Comme nts SODIUM (test code = NA) 137 mmol/L 135-145 N POTASSIUM (test code = K) 3.9 mmol/L 3.6-5.0 N CHLORIDE (test code = CL) 106 mmol/L 101-111 N CARBON DIOXIDE (test code = CO2) 23 mmol/L 21-31 N GLUCOSE (test code = GLU) 93 mg/dl 70-100 N BLOOD UREA NITROGEN (test code = BUN) 11 mg/dl 6-20 N GLOMERULAR FILTRATION RATE (test code = GFR) >=60 max estimate >60 The estimated glomerular filtration rate is computed usingpatient race, age (>18), sex, and serum creatinine. If anyof the needed data elements are missing the Laboratory cannot compute an estimation of the glomerular filtration rate. CREATININE (test code = CREAT) 0.96 mg/dL 0.44-1.03 N CALCIUM (test code = CA) 9.3 mg/dL 8.5-10.5 N LIVER FUNCTION [id number] 17:42:00* Test Item Value Reference Range Interpretation Comme nts TOTAL PROTEIN (test code = PROT) g/dL 6.7-8.2 ALBUMIN (test code = ALB) g/dL 3.2-5.5 BILIRUBIN TOTAL (test code = BILT) mg/dL 0.2-1.3 BILIRUBIN DIRECT (test code = BILD) mg/dL 0.00-0.20 SGOT/AST (test code = AST) U/L 10-42 SGPT/ALT (test code = ALT) U/L 10-60 ALKALINE PHOSPHATASE (test code = ALKP) U/L 42-121 CBC W/AUTO [id number] 17:27:00* Test Item Value Reference Range Interpretation Comme nts WHITE BLOOD CELL (test code = WBC) 8.6 x10 3/uL 3.2-11.5 N RED BLOOD CELL (test code = RBC) 4.84 x10(6)/m 3.70-5.10 N HEMOGLOBIN (test code = HGB) 12.7 g/dL 12.0-15.0 N HEMATOCRIT (test code = HCT) 40.7 % 35.7-44.8 N MEAN CELL VOLUME (test code = MCV) 84 fL 80-100 N MEAN CELL HGB (test code = MCH) 26.2 pg 26.2-33.8 N MEAN CELL HGB CONCENTRATION (test code = MCHC) 31.2 g/dL 30.0-34.0 N RED CELL DISTRIBUTION WIDTH (test code = RDW) % 11.3-14.5 PLATELET COUNT (test code = PLT) x10 3/uL 130-408 MEAN PLATELET VOLUME (test c ode = MPV) 9.0 fL 8.6-12.6 N NEUTROPHIL % (test code = NT%) % 40.0-70.0 LYMPHOCYTE % (test code = LY%) % 20-40 MONOCYTE % (test code = MO%) % 1-10 EOSINOPHIL % (test code = EO%) % 0.0-5.0 BASOPHIL % (test code = BA%) % 0.0-1.0 NUCLEATED RBC % (test code = NRBC%) % 0.0-0.9 NEUTROPHIL # (test code = NT#) x10 3/uL 1.6-7.2 LYMPHOCYTE # (test code = LY#) x10 3/uL 1.1-2.7 MONOCYTE # (test code = MO#) x10 3/uL 0.3-0.8 EOSINOPHIL # (test code = EO#) x10 3/uL 0.0-0.5 CBC W/AUTO [id number] 17:27:00* Test Item Value Reference Range Interpretation Comme nts WHITE BLOOD CELL (test code = WBC) 8.6 x10 3/uL 3.2-11.5 N RED BLOOD CELL (test code = RBC) 4.84 x10(6)/m 3.70-5.10 N HEMOGLOBIN (test code = HGB) 12.7 g/dL 12.0-15.0 N HEMATOCRIT (test code = HCT) 40.7 % 35.7-44.8 N MEAN CELL VOLUME (test code = MCV) 84 fL 80-100 N MEAN CELL HGB (test code = MCH) 26.2 pg 26.2-33.8 N MEAN CELL HGB CONCENTRATION (test code = MCHC) 31.2 g/dL 30.0-34.0 N RED CELL DISTRIBUTION WIDTH (test code = RDW) 12.7 % 11.3-14.5 N PLATELET COUNT (test code = PLT) 333 x10 3/uL 130-408 N MEAN PLATELET VOLUME (test c ode = MPV) 9.0 fL 8.6-12.6 N NEUTROPHIL % (test code = NT%) 56.7 % 40.0-70.0 N IMMATURE GRANULOCYTE % (test code = IG%) 0.5 % 0.0-2.0 N LYMPHOCYTE % (test code = LY%) 32.6 % 20-40 N MONOCYTE % (test code = MO%) 5.8 % 1-10 N EOSINOPHIL % (test code = EO%) 4.0 % 0.0-5.0 N BASOPHIL % (test code = BA%) 0.4 % 0.0-1.0 N NUCLEATED RBC % (test code = NRBC%) 0.0 % 0.0-0.9 N NEUTROPHIL # (test code = NT#) 4.9 x10 3/uL 1.6-7.2 N LYMPHOCYTE # (test code = LY#) 2.79 x10 3/uL 1.1-2.7 H MONOCYTE # (test code = MO#) 0.5 x10 3/uL 0.3-0.8 N EOSINOPHIL # (test code = EO#) 0.3 x10 3/uL 0.0-0.5 N BASOPHIL # (test code = BA#) 0.0 x10 3/uL 0.0-0.1 N Notes Date/Time Note Provider Source 2023-01-26 11:38:53 4895-95-76D17:38:53 Spoke with patient, patient states she was told she would receive a prescription of Flagyl for her chronic BV symptoms. However when patient went to [facility], they gave her fluconazole instead. 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 Records are in patient's chart. Patient is requesting for prescription of acyclovir with refills to be sent so she can just call her pharmacy for refills as needed. 02784-1Yiagvhdtj encounter CfjxRB3139-97-57O58:47:17Telephone encounter NoteTXT1.2.840.456053.1.13.104.2.7.2.72 7879|[id number] for patient lqlq38581-7GbwlRJULBLBQFD[id number] LWNEBEQWTBGIBFVKIQB9633-75-51C28:47:171 .2.840.384207.1.72.3.15|1.2.840.830186. 1.13.104.2.7.2.727879_[id number] [facility] 2023-01-26 11:28:58 1795-10-31E32:28:58 Patient returned missed call 26155-4Dqnabsqei encounter RcraUL5036-29-36L13:30:29Telephone encounter NoteTXT1.2.840.144697.1.13.104.2.7.2.72 7879|[id number] for patient kayo51687-4GvayYP901021538Nmpcprwkk L The[id number] UPYEVKDAYUIGMKUIHTC8344-72-21Y57:30:291 .2.840.566698.1.72.3.15|1.2.840.806479. 1.13.104.2.7.2.727879_[id number] Sarina Nino [facility] 2023-01-26 11:13:40 8723-30-34J46:13:40 Attempted to call #1. Left message with call back number. 66238-7Tposzpoat encounter AaixPK1649-53-97J63:14:17Telephone encounter NoteTXT1.2.840.371300.1.13.104.2.7.2.72 7879|[id number] for patient odim25626-3UsykBAJRAILYQN[id number] IFSKYSWJEQNCVQFVASQ0269-03-53H37:14:171 .2.840.878833.1.72.3.15|1.2.840.317201. 1.13.104.2.7.2.727879_[id number] [facility] 2023-01-26 10:49:48 6262-70-13E44:49:48 Dmitriefrain Yamini Smith is a 22 year old femalePt requesting to speak to nurse regarding the medication sent to pharmacy.Please call [phone] (home) 64688-3Wswrwjuim encounter VulwEL0851-23-78L57:50:25Telephone encounter NoteTXT1.2.840.975209.1.13.104.2.7.2.72 7879|[id number] for patient qsji28166-3VgazYP266865905Eswt Bazan PasUT[id number] ONAAKOHXUPZLUCBMDLM5746-20-23I12:50:251 .2.840.777294.1.72.3.15|1.2.840.682320. 1.13.104.2.7.2.727879_[id number] Gege Childers [facility] 2023-01-25 13:56:00 2485-11-29M89:56:00 Patient calling to speak to nurse regarding prescriptionmetroNIDAZOLE 500 mg tablets . Please call back 34734-1Qeizzblyd encounter YgysFT6322-81-39K73:59:54Telephone encounter NoteTXT1.2.840.471782.1.13.104.2.7.2.72 7879|[id number] for patient [id number] R [address] Bp[id number] MFMQEHIVQDRXNPXOEDZ8978-53-30Q04:59:541 .2.840.909887.1.72.3.15|1.2.840.244492. 1.13.104.2.7.2.727879_[id number] Ruby Wood [facility] 2023-01-11 14:03:46 5783-03-09P16:03:46 Notified patient that is the only appointment we have available until ically signed by Anu Armenta at 01/11/2023 2:04 PM UOZ17476-0Dalcjsorf encounter PczdTP6619-21-50B62:04:59Telephone encounter NoteTXT1.2.840.363182.1.13.104.2.7.2.72 7879|[id number] for patient qaik07282-4RtpdEZ898327892Xnabh A [id number] EXXLGKMBFWFHTTZRFSX2726-26-76J55:04:591 .2.840.459204.1.72.3.15|1.2.840.096345. 1.13.104.2.7.2.727879_[id number] Anu Zuniga [facility] 2023-01-11 13:51:01 0904-70-34W93:51:01 Pt states she has an appointment at [facility] on 01/12/2023 at 0745. Pt requesting to change appointment for sooner (same day) or Monday. Will route to [facility] to see if they are able to accommodate patient sooner. 11084-7Xohmtvids encounter AapgHF9307-13-92L06:55:02Telephone encounter NoteTXT1.2.840.372873.1.13.104.2.7.2.72 7879|[id number] for patient frir15035-4EhjiKH441475210Wxklut Rodriguez RN[id number] TYXINBKLIAPMFOIGSZT0642-26-61V59:55:021 .2.840.796734.1.72.3.15|1.2.840.300042. 1.13.104.2.7.2.727879_[id number] Noah Marc RN [facility] 2023-01-11 12:20:03 8032-57-14B97:20:03 Patient calling to speak to nurse. Please call back 08063-3Tthqtgnlh encounter TxgmUC4477-35-18N25:20:26Telephone encounter NoteTXT1.2.840.626103.1.13.104.2.7.2.72 7879|[id number] for patient ivhs67655-5YgyqQM002722394Segubyi R Garcia[id number] PXYSZBDZQYOYNMLYYMC6731-49-27A13:20:261 .2.840.115993.1.72.3.15|1.2.840.536190. 1.13.104.2.7.2.727879_[id number] Ruby Guajardo Israel [facility] 2023-01-11 11:55:12 3668-52-67D95:55:12 Patient was returning missed call to the clinic.Please call her back: [phone]. 73178-5Ngdtjhpjd encounter UmoyGW9670-38-53L24:55:58Telephone encounter NoteTXT1.2.840.178771.1.13.104.2.7.2.72 7879|[id number] for patient pjfp56688-4CzqtFG720884981Ghfth Delores Kan[id number] YALMTWUUOEJELXQTXMA5881-56-26J39:55:581 .2.840.966550.1.72.3.15|1.2.840.596296. 1.13.104.2.7.2.727879_[id number] Jamila Omer [facility] 2023-01-11 11:50:46 9764-77-56D69:50:46 Danniesatinderefrain Smith is a 22 year old femalePatient returning missed call from nurse about sooner appointment for medication for VB. Please call back [phone] (home) 39929-3Shygomlah encounter KqmiJP9181-57-72V20:53:06Telephone encounter NoteTXT1.2.840.795652.1.13.104.2.7.2.72 7879|[id number] for patient foos73994-9HvzhBE210859686Ouovvw M Israel Laguerre[id number] FUKKRHICNHNRDZVLMWO5884-31-08B35:53:061 .2.840.567917.1.72.3.15|1.2.840.978141. 1.13.104.2.7.2.727879_[id number] Mariah Rudolph Israel Shannon [facility] 2023-01-11 11:37:52 9507-11-25C70:37:52 Attempt#1. Called, no answer. Left VM NOAH MARC RN 01/11/2023 11:38 AM 46683-7Wuzeucivu encounter QuxyGJ1820-66-28F53:38:11Telephone encounter NoteTXT1.2.840.484860.1.13.104.2.7.2.72 7879|[id number] for patient lmyp55662-1WurcWTVVGENIKN[id number] TWPJLMVGGIOPTLRNAKJ3827-74-37S11:38:111 .2.840.124595.1.72.3.15|1.2.840.268682. 1.13.104.2.7.2.727879_[id number] [facility] 2023-01-11 11:07:33 5232-39-06D61:07:33 Tonia Smith is a 22 year old femalePatient calling to speak with a nurse. Pt is wanting to come in sooner and trying to receive medication, but records are in [place]. Please advise 15968-1Ricusbmps encounter FsyfQD2563-78-28P04:08:56Telephone encounter NoteTXT1.2.840.173044.1.13.104.2.7.2.72 7879|[id number] for patient nrxw18574-1NuwyZH739071117Fjdtqhp [address] Jq[id number] CPJHOYAAHQYVTEQUBER3855-55-15D97:08:561 .2.840.868337.1.72.3.15|1.2.840.061346. [id number] Elias Martinez [facility] 2020-11-04 23:49:00 [id number]/YHgub840VPvW Uma/csG6wYLMh/UYmC1A+loqLHsdbd4wInLs [id number]:49:00 [facility] ([facility] PROVID[facility] REPORTREPORT#:[id number] REPORT STATUS: SignedDATE:11/04/20 TIME: 2348 PATIENT: TONIA SMITH UNIT #: [id number]#: [id number] ROOM/BED:AGE: 20 SEX: F PCP PHYS:SERVICE DT: AUTHOR: Burak Duvall MD * ALL edits or amendments must be made on the electronic/computer document * HPI-Foot Prob/Inj GeneralConfirmed Patient YesInitial Greet Date/Time 11/04/20 2321 PresentationChief Complaint NumbnessHx Obtained From PatientOnset Occurred Weeks agoSymptom Duration Since onsetProgression since Onset Gradually worseningCaused by No trauma by historyLocation: Right Foot Dorsal surface, Plantar surface Free Text HPI NotesFree Text HPI Qizpf23-ikll-bpv female, no significant past medical history, here with numbness in the first webspace on the dorsal and plantar aspect of the right foot. No pain,no other neurologic symptoms, no injury, no trauma or symptoms around the fibular head. No headache, no symptoms of spinal cord compression or back pain. Patient was worried about a blood flow issue, prompting today's presentation. Review of Systems ROS StatementsAll systems rev neg except as marked. Free Text ROS NotesFree Text ROS NotesNeuro: endorses numbness General: denies fevers, denies rigors Cardiovascular: denies chest pain, denies sycnope Pulmonary: denies cough, denies SOB GI: denies abdominal pain, denies change in bowel habits Also of note: - Chronic conditions/symptoms are considered negative if at baseline- Additional ROS may be present in HPI Past Medical History - AdultStated Complaint R FOOT NUMNESS X 1 MONTHAllergiesCoded Allergies:Penicillins (UNKNOWN 11/04/20) Home MedicationsReported MedicationsNo Known Home Medications Calculated Suicide Risk (nurs) No riskReview of Nursing Notes Rev avail, and agreePt reports no significant: Past medical history, Social historySmoking status: Smoking status for patients 13 years old or older: Never Smoker Physical Exam Vital SignsVital SignsFirst Documented: Result Date Time Pulse Ox 98 11/04 2320 B/P 135/73 11/04 2320 B/P Mean 93 11/04 2320 O2 Delivery Room air 11/04 2320 Temp 37.0 11/04 2320 Pulse 93 11/04 2320 Resp 11/04 Last Documented: Result Date Time Pulse Ox 98 11/04 2320 B/P 135/73 11/04 2320 B/P Mean 93 11/04 2320 O2 Delivery Room air 11/04 2320 Temp 37.0 11/04 2320 Pulse 93 11/04 2320 Resp 11/04 Review of Vital Signs Reviewed Basic Physical ExamBasic PE GEN: Well appearing/NAD, HEAD: Atraumatic/NC, EYES: PERRL, conj clear, ENT: Membranes moist, NECK: Supple, RESP: No resp distress, CV: Reg rate rhythm, ABD: Soft/non-tender, UP EXT: No gross abnormal, SKIN: No rashes, warm/dry, NEURO: alert oriented, NEURO: gross movement NL, PSYCH: NL thought content Free Text PE NotesFree Text PE NotesNo aphasia or appreciable change in cognitive function. Appropriate mental status. Normal sensation and 5/5 strength in bilateral upper and lower extremities except for subjective numbness in the area described in the HPI. CN II-XII normal. No difficulties with finger to nose or rapid alternating hand movements bilaterally. Gait at baseline. Also of Note: General: awake and alert, not toxic appearing, no acute distress Head: normocephalic, no acute traumatic abnormalities Cardiac: normal S1/S2, skin well perfused Pulmonary: no respiratory distress, CTAB, no stridor Abdomen: soft, NTND Extremity abnormalities: Sensory deficit as above No acute deformities. Intact range of motion. Soft compartments. Symmetric caprefill in the toes, motor intact, stable joints. No concerning acute skin findings. No evidence of necrotizing infection, septic joint, thrombosis, or arterial insufficiency. Skin: no acute appearing rashes, well perfused Eyes: no acute deformities, lids unremarkable ENT: pink mucosa, patent nares Neck: trachea midline, appropriate ROM Re-Evaluation MDM Free Text MDM NotesFree Text MDM Qoewn42-oncu-vzv female, here clinical picture consistent with peripheral neuropathy,likely deep peroneal nerve. No red flags. Patient is upset that I am not able to provide her with a treatment and definitive diagnosis. Difficulty conveying the limitations of emergency department care for this type of problem. The patient is here at low risk for clinically significant pathology requiring extensive diagnostic work up in the Emergency Room. The patient was offered a full set of labs and/or imaging, but as they were likely low yield, they preferred clinical management without any (or just minimal) testing and treatment. The patient and/or guardian is aware of the small but non-zero chance of missed pathology, with potentially but unlikely severe consequences resulting from thistreatment plan, even with ideal outpatient follow up and immediate return for any new/worsening/persistent symptoms. They have the capacity to make this decision, which I believe is reasonable given the clinical picture in its entirety. Patient Discharge Departure Vital Signs/ConditionVital SignsFirst Documented: Result Date Time Pulse Ox 98 11/04 2320 B/P 135/73 11/04 2320 B/P Mean 93 11/04 2320 O2 Delivery Room air 11/04 2320 Temp 37.0 11/04 2320 Pulse 93 11/04 2320 Resp 16 11/04 2320 Last Documented: Result Date Time Pulse Ox 98 11/04 2320 B/P 135/73 11/04 2320 B/P Mean 93 11/04 2320 O2 Delivery Room air 11/04 2320 Temp 37.0 11/04 2320 Pulse 93 11/04 2320 Resp 16 11/04 2320 All vital signs available at the time of this entry have been reviewed. Clinical ImpressionClinical ImpressionPrimary Impression: Peripheral neuropathySecondary Impressions: Numbness Disposition DecisionDischarge )( Discharged to Home Yes )( Time 2348 )( Date 11/04/20 Discharge/Care PlanCounseled Regarding Diagnosis, Need for follow-up, When to return to ED(Auto) PrescriptionsCurrent Visit ScriptsNo Known Home Medications Patient Instructions ED Neuropathy, Peripheral, ED ParaesthesiasAdditional InstructionsAs we discussed, it is not clear exactly what is causing your symptoms, but there is no evidence of a scary or dangerous cause at this at this time. I believe that you are having a peripheral neuropathy. We decided together to do little to no testing here today because it was unlikely to uncover any concerning causes of your symptoms. Please follow up with your doctor and return for any concerns including new, worsening, or persistent symptoms. At that time they can do more expanded testing if needed.Referrals PRIMARY CARE: First Available Sandra Bocanegra MD: As Needed Girma Adams MD: As Needed Raquel Her MD: As Needed Departure FormsFREE OR LOW COST CLINICS at 0005RPT #:[id number] OF REPORTEDEmergency department [id number]:49:00V.[id number] for patient [id number]:05:41 [facility] 2020-06-10 16:54:00 [id number]:54:00 [facility] ([facility])EMERGENCY PROVIDER REPORTREPORT#:[id number] REPORT STATUS: SignedDATE:06/10/20 TIME: 1654 PATIENT: TONIA SMITH UNIT #: [id number]#: [id number] ROOM: BED:AGE: 19 SEX: F PCP PHYS: No Primary or Family PhysicianSERVICE AUTHOR: Trudy Ding * ALL edits or amendments must be made on the electronic/computer document * HPI-Abd Pain F Under 40 GeneralConfirmed Patient YesPatient Type New patientInitial Greet Date/Time 06/10/20 1347Assumed Care at Time 1625 Date 06/10/20PCPNONE PresentationChief Complaint Abdominal pain (RUQ / EPIGASTRIC )Hx Obtained From PatientSudden in Onset? YesOnset Occurred Days agoSymptom Duration Since onsetProgression since Onset IntermittentCaused by No trauma by historyMigration/Movement NoneSeverity: Current MildAssociated withDenies: Anorexia, Back pain, Chest pain, Chills, Constipation, Diarrhea, Dysuria, Fever, Hematemesis, Hematochezia, Hematuria, Melena, Nausea, Shortness of breath, Urinary frequency, Urinary retention, Urinary tract symptoms, Vaginal bleeding, Vaginal discharge, Vomiting. ContextRelated HistoryReports: GERD. Denies: Abdominal surgery, Adhesions, Alcohol abuse, Bariatric surgery, Bowel obstruction, Cholecystitis, Cholelithiasis, Current , Diverticulosis, Dysmenorrhea, Endometriosis, Glaucoma, Hepatitis, Hiatal hernia,Hypercalciuria, Inflam bowel disease, Pancreatitis, Pelvic inflam disease, Peptic ulcer disease, Peritoneal dialysis, Renal failure, Tubo-ovarian abscess, Ureterolithiasis, Urinary tract infection, Urolithiasis. Immunization Status General All up to dateRecent Healthcare No recent doctor visitSimilar Sx Previous NoPregnancy/Sexual Hx Last Menstrual Period 06/10/20 Menstrual Cycle Non-menstrual (LIGHT SPOTTING ) Free Text HPI NotesFree Text HPI [id number] female. Complaining of epigastric pain and right upper quadrant pain with nausea and vomiting intermittently since yesterday. Patient states "Ihave had stomach problems all my life". Past medical history includes asthma. Patient denies past surgical history. Last menstrual period irregular patient states "I see [employer] that is following me for that". Patient allergies to penicillin with hives outbreak. Patient denies chest pain, shortness of breath,diarrhea, constipation, fever, chills, cough and no urinary symptoms. Risk-Abd Pain F Under 40)( Ectopic No risk factorsCoronary Artery Disease No risk factorsThoracic Aortic Dissection No risk factors Review of Systems ROS StatementsAll systems rev neg except as marked. Basic Review of SystemsBasic ROS EYES: No redness, ENT: No sore throat, HEM: No bleeding/bruising, SKIN: No rash, NEURO: No change MS, NEURO: No focal deficit, PSYCH: NL thought content Focused Review of SystemsConstitutionalDenies: Chills, Fever, Lethargy. RespiratoryDenies: Cough, non-productive, Cough, productive, Shortness of breath. CardiovascularDenies: Chest pain, Syncope. GIReports: Abdominal pain, Nausea, Vomiting. Denies: Anorexia, Belching, Bloody/tarry stool, Constipation, Diarrhea, Dysphagia, Hematemesis, Hematochezia, Mucousy stool, Melena, Rectal pain. FemaleDenies: Dysuria, Flank pain, Pelvic pain. MusculoskeletalDenies: Back pain, Extremity pain. Past Medical History - AdultStated Complaint N/VAllergiesCoded Allergies:Penicillins (HIVES 03/23/20) Review of Nursing Notes Rev avail, and agreePt reports no significant: Past medical history, Past surgical history, Family history, Social historyAmbulatory Status Independent Physical Exam Vital SignsVital SignsFirst Documented: Result Date Time Pulse Ox 100 06/10 1347 B/P 133/86 06/10 1347 B/P Mean 101 06/10 1347 O2 Delivery Room air 06/10 1347 Temp 36.8 06/10 1347 Pulse 89 06/10 1347 Resp 18 06/10 1347 Last Documented: Result Date Time Pulse Ox 100 06/10 1347 B/P 133/86 06/10 1347 B/P Mean 101 06/10 1347 O2 Delivery Room air 06/10 1347 Temp 36.8 06/10 1347 Pulse 89 06/10 1347 Resp 18 06/10 1347 Review of Vital Signs Reviewed, Vital signs normal Basic Physical ExamBasic PE HEAD: Atraumatic/NC, EYES: PERRL, conj clear, ENT: Membranes moist, NECK: Supple, EXT: No gross abnormality, SKIN: No rashes, warm/dry, NEURO: alert oriented, NEURO: gross movement NL, PSYCH: NL thought content Focused PEGeneral/Const General/Const Awake, Alert, Well appearingMS Head Head NormocephalicEyes Eyes PERRLEars/Nose/Throat Ears/Nose/Throat Airway patent, Mucous membranes moist, Pharynx NLResp/Chest Respiratory/Chest Breath sounds NL, Breath sounds = bilat, No respiratory distress, No rales, No rhonchi, No wheezingCardiovascular Cardiovascular Heart rate NL, Regular rhythm, Heart sounds NL, Peripheral circulation NLAbdomen/GI Abdomen/GI Soft, McBurney's non-tender, No guarding, No rebound, BS normoactive, No distention, No hernia, No palpable mass Tenderness/Guarding/Rebound Tender RUQ, Tender epigastric. MS Back Back Inspection NL, Non-tender, No CVA tendernessSkin Skin Color NL, Warm, Dry, Turgor NLNeurologic Neurologic Oriented X3, Speech NL, No motor deficits, No sensory deficits Interpretation Diagnostics Lab Results InterpretationConsiderations Independ review imagingResultsLaboratory Tests 06/10/20 1400:[Embedded Image Not Available]Laboratory Tests: 06/10 06/10 06/10 1400 1400 1401 Chemistry Sodium (135 - 145 mmol/L) 139 Potassium (3.6 - 5.0 mmol/L) 4.0 Chloride (101 - 111 mmol/L) 105 Carbon Dioxide (21 - 31 mmol/L) 23 BUN (6 - 20 mg/dl) 11 Creatinine (0.44 - 1.03 mg/dL) 0.82 Glomerular Filtr Rate (>60) >=60 max estimate Glucose (70 - 100 mg/dl) 102 H Calcium (8.5 - 10.5 mg/dL) 9.2 Total Bilirubin (0.2 - 1.3 mg/dL) 0.90 Direct Bilirubin (0.00 - 0.20 mg/dL) 0.1 AST (10 - 42 U/L) 34 ALT (10 - 60 U/L) 40 Total Alk Phosphatase (42 - 121 U/L) 63 Total Protein (6.7 - 8.2 g/dL) 7.8 Albumin (3.2 - 5.5 g/dL) 4.2 Lipase (22 - 51 IU/L) 28 Serum HCG, Qual (NEGATIVE) NEGATIVE Hematology WBC (3.2 - 11.5 x10 3/uL) 6.3 RBC (3.70 - 5.10 x10(6)/m) 5.25 H Hgb (12.0 - 15.0 g/dL) 13.3 Hct (35.7 - 44.8 %) 44.1 MCV (80 - 100 fL) 84 MCH (26.2 - 33.8 pg) 25.3 L MCHC (30.0 - 34.0 g/dL) 30.2 RDW (11.3 - 14.5 %) 13.3 Plt Count (130 - 408 x10 3/uL) 295 MPV (8.6 - 12.6 fL) 9.6 Neut % (Auto) (40.0 - 70.0 %) 52.4 Lymph % (Auto) (20 - 40 %) 38.4 [place] % (Auto) (1 - 10 %) 6.3 Eos % (Auto) (0.0 - 5.0 %) 2.1 Baso % (Auto) (0.0 - 1.0 %) 0.6 Neut # (Auto) (1.6 - 7.2 x10 3/uL) 3.3 Lymph # (Auto) (1.1 - 2.7 x10 3/uL) 2.42 [place] # (Auto) (0.3 - 0.8 x10 3/uL) 0.4 Eos # (Auto) (0.0 - 0.5 x10 3/uL) 0.1 Baso # (Auto) (0.0 - 0.1 x10 3/uL) 0.0 Immature Gran % (0.0 - 2.0 %) 0.2 Nucleated RBC % (0.0 - 0.9 %) 0.0 Urines Urine Color (YELLOW) YELLOW Urine Appearance (CLEAR) HAZY Urine pH (5.0 - 9.0) 5.0 Ur Specific [place] (1.001 - 1.030) 1.019 Urine Protein (NEGATIVE) NEGATIVE Urine Glucose (UA) (NEGATIVE) NEGATIVE Urine Ketones (NEGATIVE) NEGATIVE Urine Blood (NEGATIVE) 3+ Urine Nitrite (NEGATIVE) NEGATIVE Urine Bilirubin (NEGATIVE) NEGATIVE Urine Urobilinogen (<=1.0) NEGATIVE Ur Leukocyte Esterase (NEGATIVE) NEGATIVE Urine RBC (0 - 5 /HPF) 21-50 Urine WBC (0 - 5 /HPF) 0-5 Ur Epithelial Cells (NONE - FEW /LPF) FEW Urine Bacteria (NONE SEEN /HPF) None Urine Mucus (NONE SEEN /LPF) 1+ Urine Ascorbic Acid NEGATIVE Recent Impressions:ULTRASOUND - US ABDOMEN LTD 06/10 1645 Report Impression - Status: SIGNED Entered: 06/10/2020 1716 IMPRESSION:1. Fatty infiltration of the liver.Impression By: [email or web address] - Bernardino Gambino MD Lab Imaging StatementLaboratory radiographic studies reviewed and considered in the medical decision-making. Re-Evaluation MDM )( Re-Evaluation/Progress #1Text/Dict NoteOrdered medication and ultrasound for patient at this time patient remains in the waiting room patient instructed to plan of care to rule out gallbladder versus gastritis, patient agrees.Time of Re-Eval 1630)( Re-Eval Status UnchangedRe-Eval Abdomen Soft, No rebound, BS normoactive, Tenderness, GuardingEval Following Treatment Condition unchanged, Nausea persists, Vomiting resolvedPain Re-Evaluation Pain unchangedExam Post Tx - General Active, AlertExam Post Tx - Sys Review Lungs clear, Abdomen soft, Abdomen tenderPlan Post Re-Eval AWAITING US AND MEDICAATION TO BE GIVEN Re-Evaluation/Progress #2Text/Dict NotePatient refuses all medications ordered and recommended to follow-up with cosmetics counter manager first available appointment, patient agrees. Discussed patient's ultrasound with patient indicating fatty infiltration of the liver andthat further testing needed with cosmetics counter manager, patient agrees.Time of Eval 1732Re-Eval Status ImprovedRe-Eval Abdomen SoftEval Following Treatment Pt. feels better, Condition improved, Tolerating liquids, no N/Pain Re-Evaluation Pain improvedExam Post Tx - General Active, Alert, Appears well, Vital signs stableExam Post Tx - Sys Review Lungs clear, Abdomen soft, Abdomen nontenderPlan Post Re-Eval Plan discharge Abd Pain MDM Note F < 40The patient is resting comfortably and feels better, is alert and in no distress. The repeat examination is unremarkable and benign; in particular, there is no discomfort at [facility]. The history, exam, diagnostic testing, and current condition do not suggest acute appendicitis, bowel obstruction, tubovarian abscess, ectopic , ovarian torsion, acute cholecystitis, bowel perforation, major gastrointestinal bleeding, severe diverticulitis, sepsis, or other significant pathology to warrant further testing, continued ED treatment, admission, or surgical evaluation at this point. The vital signs have been stable. The patient does not have uncontrollable pain, intractable vomiting, or other significant symptoms. The patient's condition is stable and appropriate for discharge. The patient will pursue further outpatient evaluation with the primary care physician or other designated or consulting physician as indicated in the discharge instructions. TAD MDM NoteThere is no historical, physical exam, laboratory or imaging data that would suggest a need to consider or further evaluate the patient for thoracic aortic dissection at this time. I am no longer considering thoracic aortic dissection in the differential diagnosis. The timing of the onset of pain and the pain radiation pattern are not consistent with dissection. There has been no movementof pain from the chest to the back or to the abdomen, which would be consistent with a dissection process. The analysis of risks that would predispose to dissection does not indicate a need to further pursue the diagnosis. The patient's vital signs have been stable, there is no apparent aortic murmur, and there is either 1) no gross radial pulse differential and/or 2) no significant blood pressure differential between the right and left arms. In addition, the laboratory and imaging results are not consistent with aortic dissection. In particular, the chest x-ray does not meet any of the criteria for aortic dissection. Tissue Perfusion ReassessmentPatient tissue perfusion reassessment completed. ED CourseMedication(s) OrderedMedication(s) Ordered:Central Nervous System Agents Sig/Gareth Start time Last Medication Dose Route Stop Time Status Admin Ketorolac 30 MG X1ED STA 06/10 1634 DC Tromethamine IV 06/10 1635 Electrolytic, Caloric, And Elena Sig/Gareth Start time Last Medication Dose Route Stop Time Status Admin Sodium Chloride 1,000 ML X1ED STA 06/10 1633 DC IV 06/10 1634 Gastrointestinal Drugs Sig/Gareth Start time Last Medication Dose Route Stop Time Status Admin Al Hydrox/Mg Hydrox/ 30 ML X1ED STA 06/10 1635 DC Simethicone PO 06/10 1636 Lidocaine HCl 15 ML Hyoscyamine Sulfate 250 MCG Famotidine 20 MG X1ED STA 06/10 1635 AC Sodium Chloride 10 ML IV 06/11 0434 Ondansetron HCl 4 MG X1ED STA 06/10 1634 DC IV 06/10 1635 Patient Discharge Departure Vital Signs/ConditionVital SignsFirst Documented: Result Date Time Pulse Ox 100 06/10 1347 B/P 133/86 06/10 1347 B/P Mean 101 06/10 1347 O2 Delivery Room air 06/10 1347 Temp 36.8 06/10 1347 Pulse 89 06/10 1347 Resp 18 06/10 1347 Last Documented: Result Date Time Pulse Ox 100 06/10 1347 B/P 133/86 06/10 1347 B/P Mean 101 06/10 1347 O2 Delivery Room air 06/10 1347 Temp 36.8 06/10 1347 Pulse 89 06/10 1347 Resp 18 06/10 1347 All vital signs available at the time of this entry have been reviewed. Condition Stable Clinical ImpressionClinical ImpressionPrimary Impression: GastritisSecondary Impressions: Fatty liverRuled Out Impressions: Nausea vomiting Disposition DecisionDischarge )( Discharged to Home Yes )( Time 1728 )( Date 06/10/20 Discharge/Care PlanCounseled Regarding Diagnosis, Lab results, Imaging studies, Prescriptions, Needfor follow-up, When to return to ED(Auto) PrescriptionsCurrent Visit ScriptsSucralfate (Carafate 1 Gm/10 Ml) 1 GM PO AC HS Sucralfate (Carafate 1 Gm/10 Ml) 1 GM PO AC HS #300 ML 1 GM = 10ML Dicyclomine (Bentyl) 20 MG PO TID Dicyclomine (Bentyl) 20 MG PO TID #30 TABS Ondansetron Odt (Zofran Odt) 4 MG PO Q6H PRN PRN NAUSEA/VOMITING Ondansetron Odt (Zofran Odt) 4 MG PO Q6H PRN PRN NAUSEA/VOMITING #15 TABS Prescriptions Reviewed Risks, Benefits, Alternative treatmentPatient Instructions ED Gastritis (Adult), ED Vomiting (Adult), Nonalcoholic Fatty Liver Disease NAFLDAdditional InstructionsReturn to emergency room if condition worsens immediately. Follow-up with primary care physician and/or cosmetics counter manager first available appointment patient given referrals in discharge instructions, patient agrees to follow-up and make appointment tomorrow.ReferralsMarco A Khanna MD: First Available Departure FormsABNORMAL RADIOLOGY [facility] PCP LISTWORK/SCHOOL EXCUSE VARIABLE Restrictions apply through 06/10/20 May return to work/school 06/13/20 Any Restrictions No Discharge NoteI have spoken with the patient and/or caregivers. I have explained the patient'scondition, diagnoses and treatment plan based on the information available to meat this time. I have answered the patient's and/or caregiver's questions and addressed any concerns. The patient and/or caregivers have as good an understanding of the patient's diagnosis, condition and treatment plan as can beexpected at this point. The vital signs have been stable. The patient's condition is stable and appropriate for discharge from the emergency department. The patient will pursue further outpatient evaluation with the primary care physician or other designated or consulting physician as outlined in the discharge instructions. The patient and/or caregivers are agreeable to this planof care and follow-up instructions have been explained in detail. The patient and/or caregivers have received these instructions in written format and have expressed an understanding of the discharge instructions. The patient and/or caregivers are aware that any significant change in condition or worsening of symptoms should prompt an immediate return to this or the closest emergency department or a call to 911. Quality MeasuresBP F/U for HTN F/u with PCP/other docCurrent Medications Attest: Medication reviewPreg Test for Women w/Abd Pain Female age 14-50, Any preg test orderedSmoking Cessation Screened, non userTobacco Screening/Cessation 18 years or older, Denies tobacco use at 1555RPT #:[id number] OF REPORTEDEmernorth metro medical center department [id number]:54:00N.[id number] for patient [id number]:55:24 [facility] 16:54:00 [id number] [id number]:54:00 [facility] ([facility])EMERGENCY PROVIDER REPORTREPORT#:[id number] REPORT STATUS: SignedDATE:06/10/20 TIME: 1654 PATIENT: TONIA SMITH UNIT #: [id number]#: [id number] ROOM: BED:AGE: 19 SEX: F PCP PHYS: No Primary or Family PhysicianSERVICE AUTHOR: Trudy Ding * ALL edits or amendments must be made on the electronic/computer document * HPI-Abd Pain F Under 40 GeneralConfirmed Patient YesPatient Type New patientInitial Greet Date/Time 06/10/20 1347Assumed Care at Time 1625 Date 06/10/20PCPNONE PresentationChief Complaint Abdominal pain (RUQ / EPIGASTRIC )Hx Obtained From PatientSudden in Onset? YesOnset Occurred Days agoSymptom Duration Since onsetProgression since Onset IntermittentCaused by No trauma by historyMigration/Movement NoneSeverity: Current MildAssociated withDenies: Anorexia, Back pain, Chest pain, Chills, Constipation, Diarrhea, Dysuria, Fever, Hematemesis, Hematochezia, Hematuria, Melena, Nausea, Shortness of breath, Urinary frequency, Urinary retention, Urinary tract symptoms, Vaginal bleeding, Vaginal discharge, Vomiting. ContextRelated HistoryReports: GERD. Denies: Abdominal surgery, Adhesions, Alcohol abuse, Bariatric surgery, Bowel obstruction, Cholecystitis, Cholelithiasis, Current , Diverticulosis, Dysmenorrhea, Endometriosis, Glaucoma, Hepatitis, Hiatal hernia,Hypercalciuria, Inflam bowel disease, Pancreatitis, Pelvic inflam disease, Peptic ulcer disease, Peritoneal dialysis, Renal failure, Tubo-ovarian abscess, Ureterolithiasis, Urinary tract infection, Urolithiasis. Immunization Status General All up to dateRecent Healthcare No recent doctor visitSimilar Sx Previous NoPregnancy/Sexual Hx Last Menstrual Period 06/10/20 Menstrual Cycle Non-menstrual (LIGHT SPOTTING ) Free Text HPI NotesFree Text HPI [id number] female. Complaining of epigastric pain and right upper quadrant pain with nausea and vomiting intermittently since yesterday. Patient states "Trey had stomach problems all my life". Past medical history includes asthma. Patient denies past surgical history. Last menstrual period irregular patient states "I see [employer] that is following me for that". Patient allergies to penicillin with hives outbreak. Patient denies chest pain, shortness of breath,diarrhea, constipation, fever, chills, cough and no urinary symptoms. Risk-Abd Pain F Under 40)( Ectopic No risk factorsCoronary Artery Disease No risk factorsThoracic Aortic Dissection No risk factors Review of Systems ROS StatementsAll systems rev neg except as marked. Basic Review of SystemsBasic ROS EYES: No redness, ENT: No sore throat, HEM: No bleeding/bruising, SKIN: No rash, NEURO: No change MS, NEURO: No focal deficit, PSYCH: NL thought content Focused Review of SystemsConstitutionalDenies: Chills, Fever, Lethargy. RespiratoryDenies: Cough, non-productive, Cough, productive, Shortness of breath. CardiovascularDenies: Chest pain, Syncope. GIReports: Abdominal pain, Nausea, Vomiting. Denies: Anorexia, Belching, Bloody/tarry stool, Constipation, Diarrhea, Dysphagia, Hematemesis, Hematochezia, Mucousy stool, Melena, Rectal pain. FemaleDenies: Dysuria, Flank pain, Pelvic pain. MusculoskeletalDenies: Back pain, Extremity pain. Past Medical History - AdultStated Complaint N/VAllergiesCoded Allergies:Penicillins (HIVES 03/23/20) Review of Nursing Notes Rev avail, and agreePt reports no significant: Past medical history, Past surgical history, Family history, Social historyAmbulatory Status Independent Physical Exam Vital SignsVital SignsFirst Documented: Result Date Time Pulse Ox 100 06/10 1347 B/P 133/86 06/10 1347 B/P Mean 101 06/10 1347 O2 Delivery Room air 06/10 1347 Temp 36.8 06/10 1347 Pulse 89 06/10 1347 Resp 18 06/10 1347 Last Documented: Result Date Time Pulse Ox 100 06/10 1347 B/P 133/86 06/10 1347 B/P Mean 101 06/10 1347 O2 Delivery Room air 06/10 1347 Temp 36.8 06/10 1347 Pulse 89 06/10 1347 Resp 18 06/10 1347 Review of Vital Signs Reviewed, Vital signs normal Basic Physical ExamBasic PE HEAD: Atraumatic/NC, EYES: PERRL, conj clear, ENT: Membranes moist, NECK: Supple, EXT: No gross abnormality, SKIN: No rashes, warm/dry, NEURO: alert oriented, NEURO: gross movement NL, PSYCH: NL thought content Focused PEGeneral/Const General/Const Awake, Alert, Well appearingMS Head Head NormocephalicEyes Eyes PERRLEars/Nose/Throat Ears/Nose/Throat Airway patent, Mucous membranes moist, Pharynx NLResp/Chest Respiratory/Chest Breath sounds NL, Breath sounds = bilat, No respiratory distress, No rales, No rhonchi, No wheezingCardiovascular Cardiovascular Heart rate NL, Regular rhythm, Heart sounds NL, Peripheral circulation NLAbdomen/GI Abdomen/GI Soft, McBurney's non-tender, No guarding, No rebound, BS normoactive, No distention, No hernia, No palpable mass Tenderness/Guarding/Rebound Tender RUQ, Tender epigastric. MS Back Back Inspection NL, Non-tender, No CVA tendernessSkin Skin Color NL, Warm, Dry, Turgor NLNeurologic Neurologic Oriented X3, Speech NL, No motor deficits, No sensory deficits Interpretation Diagnostics Lab Results InterpretationConsiderations Independ review imagingResultsLaboratory Tests 06/10/20 1400:[Embedded Image Not Available]Laboratory Tests: 06/10 06/10 06/10 1400 1400 1401 Chemistry Sodium (135 - 145 mmol/L) 139 Potassium (3.6 - 5.0 mmol/L) 4.0 Chloride (101 - 111 mmol/L) 105 Carbon Dioxide (21 - 31 mmol/L) 23 BUN (6 - 20 mg/dl) 11 Creatinine (0.44 - 1.03 mg/dL) 0.82 Glomerular Filtr Rate (>60) >=60 max estimate Glucose (70 - 100 mg/dl) 102 H Calcium (8.5 - 10.5 mg/dL) 9.2 Total Bilirubin (0.2 - 1.3 mg/dL) 0.90 Direct Bilirubin (0.00 - 0.20 mg/dL) 0.1 AST (10 - 42 U/L) 34 ALT (10 - 60 U/L) 40 Total Alk Phosphatase (42 - 121 U/L) 63 Total Protein (6.7 - 8.2 g/dL) 7.8 Albumin (3.2 - 5.5 g/dL) 4.2 Lipase (22 - 51 IU/L) 28 Serum HCG, Qual (NEGATIVE) NEGATIVE Hematology WBC (3.2 - 11.5 x10 3/uL) 6.3 RBC (3.70 - 5.10 x10(6)/m) 5.25 H Hgb (12.0 - 15.0 g/dL) 13.3 Hct (35.7 - 44.8 %) 44.1 MCV (80 - 100 fL) 84 MCH (26.2 - 33.8 pg) 25.3 L MCHC (30.0 - 34.0 g/dL) 30.2 RDW (11.3 - 14.5 %) 13.3 Plt Count (130 - 408 x10 3/uL) 295 MPV (8.6 - 12.6 fL) 9.6 Neut % (Auto) (40.0 - 70.0 %) 52.4 Lymph % (Auto) (20 - 40 %) 38.4 [place] % (Auto) (1 - 10 %) 6.3 Eos % (Auto) (0.0 - 5.0 %) 2.1 Baso % (Auto) (0.0 - 1.0 %) 0.6 Neut # (Auto) (1.6 - 7.2 x10 3/uL) 3.3 Lymph # (Auto) (1.1 - 2.7 x10 3/uL) 2.42 [place] # (Auto) (0.3 - 0.8 x10 3/uL) 0.4 Eos # (Auto) (0.0 - 0.5 x10 3/uL) 0.1 Baso # (Auto) (0.0 - 0.1 x10 3/uL) 0.0 Immature Gran % (0.0 - 2.0 %) 0.2 Nucleated RBC % (0.0 - 0.9 %) 0.0 Urines Urine Color (YELLOW) YELLOW Urine Appearance (CLEAR) HAZY Urine pH (5.0 - 9.0) 5.0 Ur Specific [place] (1.001 - 1.030) 1.019 Urine Protein (NEGATIVE) NEGATIVE Urine Glucose (UA) (NEGATIVE) NEGATIVE Urine Ketones (NEGATIVE) NEGATIVE Urine Blood (NEGATIVE) 3+ Urine Nitrite (NEGATIVE) NEGATIVE Urine Bilirubin (NEGATIVE) NEGATIVE Urine Urobilinogen (<=1.0) NEGATIVE Ur Leukocyte Esterase (NEGATIVE) NEGATIVE Urine RBC (0 - 5 /HPF) 21-50 Urine WBC (0 - 5 /HPF) 0-5 Ur Epithelial Cells (NONE - FEW /LPF) FEW Urine Bacteria (NONE SEEN /HPF) None Urine Mucus (NONE SEEN /LPF) 1+ Urine Ascorbic Acid NEGATIVE Recent Impressions:ULTRASOUND - US ABDOMEN LTD 06/10 1645 Report Impression - Status: SIGNED Entered: 06/10/2020 1716 IMPRESSION:1. Fatty infiltration of the liver.Impression By: [email or web address] - Bernardino Gambino MD Lab Imaging StatementLaboratory radiographic studies reviewed and considered in the medical decision-making. Re-Evaluation MDM )( Re-Evaluation/Progress #1Text/Dict NoteOrdered medication and ultrasound for patient at this time patient remains in the waiting room patient instructed to plan of care to rule out gallbladder versus gastritis, patient agrees.Time of Re-Eval 1630)( Re-Eval Status UnchangedRe-Eval Abdomen Soft, No rebound, BS normoactive, Tenderness, GuardingEval Following Treatment Condition unchanged, Nausea persists, Vomiting resolvedPain Re-Evaluation Pain unchangedExam Post Tx - General Active, AlertExam Post Tx - Sys Review Lungs clear, Abdomen soft, Abdomen tenderPlan Post Re-Eval AWAITING US AND MEDICAATION TO BE GIVEN Re-Evaluation/Progress #2Text/Dict NotePatient refuses all medications ordered and recommended to follow-up with cosmetics counter manager first available appointment, patient agrees. Discussed patient's ultrasound with patient indicating fatty infiltration of the liver andthat further testing needed with cosmetics counter manager, patient agrees.Time of Eval 1732Re-Eval Status ImprovedRe-Eval Abdomen SoftEval Following Treatment Pt. feels better, Condition improved, Tolerating liquids, no N/Pain Re-Evaluation Pain improvedExam Post Tx - General Active, Alert, Appears well, Vital signs stableExam Post Tx - Sys Review Lungs clear, Abdomen soft, Abdomen nontenderPlan Post Re-Eval Plan discharge Abd Pain MDM Note F < 40The patient is resting comfortably and feels better, is alert and in no distress. The repeat examination is unremarkable and benign; in particular, there is no discomfort at McBurney's point. The history, exam, diagnostic testing, and current condition do not suggest acute appendicitis, bowel obstruction, tubovarian abscess, ectopic , ovarian torsion, acute cholecystitis, bowel perforation, major gastrointestinal bleeding, severe diverticulitis, sepsis, or other significant pathology to warrant further testing, continued ED treatment, admission, or surgical evaluation at this point. The vital signs have been stable. The patient does not have uncontrollable pain, intractable vomiting, or other significant symptoms. The patient's condition is stable and appropriate for discharge. The patient will pursue further outpatient evaluation with the primary care physician or other designated or consulting physician as indicated in the discharge instructions. TAD LAUREEN NoteThere is no historical, physical exam, laboratory or imaging data that would suggest a need to consider or further evaluate the patient for thoracic aortic dissection at this time. I am no longer considering thoracic aortic dissection in the differential diagnosis. The timing of the onset of pain and the pain radiation pattern are not consistent with dissection. There has been no movementof pain from the chest to the back or to the abdomen, which would be consistent with a dissection process. The analysis of risks that would predispose to dissection does not indicate a need to further pursue the diagnosis. The patient's vital signs have been stable, there is no apparent aortic murmur, and there is either 1) no gross radial pulse differential and/or 2) no significant blood pressure differential between the right and left arms. In addition, the laboratory and imaging results are not consistent with aortic dissection. In particular, the chest x-ray does not meet any of the criteria for aortic dissection. Tissue Perfusion ReassessmentPatient tissue perfusion reassessment completed. ED CourseMedication(s) OrderedMedication(s) Ordered:Central Nervous System Agents Sig/Gareth Start time Last Medication Dose Route Stop Time Status Admin Ketorolac 30 MG X1ED STA 06/10 1634 DC Tromethamine IV 06/10 1635 Electrolytic, Caloric, And Elena Sig/Gareth Start time Last Medication Dose Route Stop Time Status Admin Sodium Chloride 1,000 ML X1ED STA 06/10 1633 DC IV 06/10 1634 Gastrointestinal Drugs Sig/Gareth Start time Last Medication Dose Route Stop Time Status Admin Al Hydrox/Mg Hydrox/ 30 ML X1ED STA 06/10 1635 DC Simethicone PO 06/10 1636 Lidocaine HCl 15 ML Hyoscyamine Sulfate 250 MCG Famotidine 20 MG X1ED STA 06/10 1635 AC Sodium Chloride 10 ML IV 06/11 0434 Ondansetron HCl 4 MG X1ED STA 06/10 1634 DC IV 06/10 1635 Patient Discharge Departure Vital Signs/ConditionVital SignsFirst Documented: Result Date Time Pulse Ox 100 06/10 1347 B/P 133/86 06/10 1347 B/P Mean 101 06/10 1347 O2 Delivery Room air 06/10 1347 Temp 36.8 06/10 1347 Pulse 89 06/10 1347 Resp 18 06/10 1347 Last Documented: Result Date Time Pulse Ox 100 06/10 1347 B/P 133/86 06/10 1347 B/P Mean 101 06/10 1347 O2 Delivery Room air 06/10 1347 Temp 36.8 06/10 1347 Pulse 89 06/10 1347 Resp 18 06/10 1347 All vital signs available at the time of this entry have been reviewed. Condition Stable Clinical ImpressionClinical ImpressionPrimary Impression: GastritisSecondary Impressions: Fatty liverRuled Out Impressions: Nausea vomiting Disposition DecisionDischarge )( Discharged to Home Yes )( Time 1728 )( Date 06/10/20 Discharge/Care PlanCounseled Regarding Diagnosis, Lab results, Imaging studies, Prescriptions, Needfor follow-up, When to return to ED(Auto) PrescriptionsCurrent Visit ScriptsSucralfate (Carafate 1 Gm/10 Ml) 1 GM PO AC HS Sucralfate (Carafate 1 Gm/10 Ml) 1 GM PO AC HS #300 ML 1 GM = 10ML Dicyclomine (Bentyl) 20 MG PO TID Dicyclomine (Bentyl) 20 MG PO TID #30 TABS Ondansetron Odt (Zofran Odt) 4 MG PO Q6H PRN PRN NAUSEA/VOMITING Ondansetron Odt (Zofran Odt) 4 MG PO Q6H PRN PRN NAUSEA/VOMITING #15 TABS Prescriptions Reviewed Risks, Benefits, Alternative treatmentPatient Instructions ED Gastritis (Adult), ED Vomiting (Adult), Nonalcoholic Fatty Liver Disease NAFLDAdditional InstructionsReturn to emergency room if condition worsens immediately. Follow-up with primary care physician and/or cosmetics counter manager first available appointment patient given referrals in discharge instructions, patient agrees to follow-up and make appointment tomorrow.Marco A Kearney MD: First Available Departure FormsABNORMAL RADIOLOGY [facility] PCP LISTWORK/SCHOOL EXCUSE VARIABLE Restrictions apply through 06/10/20 May return to work/school 06/13/20 Any Restrictions No Discharge NoteI have spoken with the patient and/or caregivers. I have explained the patient'scondition, diagnoses and treatment plan based on the information available to meat this time. I have answered the patient's and/or caregiver's questions and addressed any concerns. The patient and/or caregivers have as good an understanding of the patient's diagnosis, condition and treatment plan as can beexpected at this point. The vital signs have been stable. The patient's condition is stable and appropriate for discharge from the emergency department. The patient will pursue further outpatient evaluation with the primary care physician or other designated or consulting physician as outlined in the discharge instructions. The patient and/or caregivers are agreeable to this planof care and follow-up instructions have been explained in detail. The patient and/or caregivers have received these instructions in written format and have expressed an understanding of the discharge instructions. The patient and/or caregivers are aware that any significant change in condition or worsening of symptoms should prompt an immediate return to this or the closest emergency department or a call to 911. Quality MeasuresBP F/U for HTN F/u with PCP/other docCurrent Medications Attest: Medication reviewPreg Test for Women w/Abd Pain Female age 14-50, Any preg test orderedSmoking Cessation Screened, non userTobacco Screening/Cessation 18 years or older, Denies tobacco use at 1555 at 0616RPT #:[id number] OF REPORTLamb [facility] Center department [id number]:54:00N.[id number] for patient [id number]:16:36 [facility] 2020[facility] 17:57:00 [id number]/fyeI [id number] [id number]:57:00 [facility] ([facility])EMERGENCY PROVIDER REPORTREPORT#:[id number] REPORT STATUS: SignedDATE:03/24/20 TIME: 175 PATIENT: TONIA SMITH UNIT #: [id number]#: [id number] ROOM: BED:AGE: 19 SEX: F PCP PHYS: No Primary or Family PhysicianSERVICE AUTHOR: Luis Washington * ALL edits or amendments must be made on the electronic/computer document * HPI- Female GeneralConfirmed Patient YesInitial Greet Date/Time 03/24/20 1642 PresentationChief Complaint Vaginal bleedingHx Obtained From Patient)( Sudden in Onset? NoOnset Occurred Days ago (10)Severity: Onset MildSeverity: Current Mild ContextSimilar Sx Previous No Free Text HPI NotesFree Text HPI [id number] female with no medical history states, states she is had vaginal bleeding for 10 days. States she does have irregular menstrual cycles. She discussed this with her physician today who told her she probably need to be on control. Patient does not wish to go on control states she is trying to get . No fever no chills no nausea vomiting. No pelvic cramping no back cramping. Denies at this time. Risk- Female Risk StratificationEctopic Risk factors reviewed Review of Systems ROS StatementsAll systems rev neg except as marked.Complete sys rev neg except as marked. Focused Review of SystemsGU FemaleReports: Vaginal bleeding - abnl. Past Medical History - AdultStated Complaint VAGINAL BLEEDINGAllergiesCoded Allergies:Penicillins (HIVES 03/23/20) Pt reports no significant: Social historyFamily History:Reports: Diabetes. Physical Exam Vital SignsVital SignsFirst Documented: Result Date Time Temp 36.8 03/24 1637 Pulse Ox 99 03/24 1639 B/P 116/79 03/24 1639 B/P Mean 91.3 03/24 1639 Pulse 109 03/24 1639 Resp 16 03/24 1639 Last Documented: Result Date Time Pulse Ox 99 03/24 163 B/P 116/79 03/24 163 B/P Mean 91.3 03/24 1639 Pulse 109 03/24 1639 Resp 16 03/24 163 Temp 36.8 03/24 1637 Review of Vital Signs Reviewed, Vital signs normal Basic Physical ExamBasic PE GEN: Well appearing/NAD, HEAD: Atraumatic/NC, EYES: PERRL, conj clear Focused PEGeneral/Const General/Const Awake, Alert, No acute distressResp/Chest Respiratory/Chest Breath sounds NL, Breath sounds = bilat, No wheezingCardiovascular Cardiovascular Heart rate NL, Regular rhythm, Heart sounds NL, No murmursAbdomen/GI Abdomen/GI Soft, Non-tender, BS normoactive, No distentionMS Back Back Full range of motionSkin Skin Atraumatic, Color NL, IntactGenitourinary General Exam deferred Interpretation Diagnostics Lab Results InterpretationResultsLaboratory Tests 03/24/201712:[Embedded Image Not Available]Laboratory Tests: 03/243 1713 Chemistry Sodium (135 - 145 mmol/L) 137 Potassium (3.6 - 5.0 mmol/L) 3.9 Chloride (101 - 111 mmol/L) 106 Carbon Dioxide (21 - 31 mmol/L) 23 BUN (6 - 20 mg/dl) 11 Creatinine (0.44 - 1.03 mg/dL) 0.96 Glomerular Filtr Rate (>60) >=60 max estimate Glucose (70 - 100 mg/dl) 93 Calcium (8.5 - 10.5 mg/dL) 9.3 Total Bilirubin (0.2 - 1.3 mg/dL) 0.80 Direct Bilirubin (0.00 - 0.20 mg/dL) 0.2 AST (10 - 42 U/L) 27 ALT (10 - 60 U/L) 25 Total Alk Phosphatase (42 - 121 U/L) 66 Total Protein (6.7 - 8.2 g/dL) 8.4 H Albumin (3.2 - 5.5 g/dL) 4.2 Serum HCG, Qual (NEGATIVE) NEGATIVE Hematology WBC (3.2 - 11.5 x10 3/uL) 8.6 RBC (3.70 - 5.10 x10(6)/m) 4.84 Hgb (12.0 - 15.0 g/dL) 12.7 Hct (35.7 - 44.8 %) 40.7 MCV (80 - 100 fL) 84 MCH (26.2 - 33.8 pg) 26.2 MCHC (30.0 - 34.0 g/dL) 31.2 RDW (11.3 - 14.5 %) 12.7 Plt Count (130 - 408 x10 3/uL) 333 MPV (8.6 - 12.6 fL) 9.0 Neut % (Auto) (40.0 - 70.0 %) 56.7 Lymph % (Auto) (20 - 40 %) 32.6 [place] % (Auto) (1 - 10 %) 5.8 Eos % (Auto) (0.0 - 5.0 %) 4.0 Baso % (Auto) (0.0 - 1.0 %) 0.4 Neut # (Auto) (1.6 - 7.2 x10 3/uL) 4.9 Lymph # (Auto) (1.1 - 2.7 x10 3/uL) 2.79 H [place] # (Auto) (0.3 - 0.8 x10 3/uL) 0.5 Eos # (Auto) (0.0 - 0.5 x10 3/uL) 0.3 Baso # (Auto) (0.0 - 0.1 x10 3/uL) 0.0 Immature Gran % (0.0 - 2.0 %) 0.5 Nucleated RBC % (0.0 - 0.9 %) 0.0 03/24 1735 Urines Urine Color (YELLOW) YELLOW Urine Appearance (CLEAR) HAZY Urine pH (5.0 - 9.0) 5.0 Ur Specific [place] (1.001 - 1.030) 1.027 Urine Protein (NEGATIVE) 1+ H Urine Glucose (UA) (NEGATIVE) NEGATIVE Urine Ketones (NEGATIVE) NEGATIVE Urine Blood (NEGATIVE) 1+ Urine Nitrite (NEGATIVE) NEGATIVE Urine Bilirubin (NEGATIVE) NEGATIVE Urine Urobilinogen (<=1.0) 2.0 H Ur Leukocyte Esterase (NEGATIVE) NEGATIVE Urine RBC (0 - 5 /HPF) 11-20 Urine WBC (0 - 5 /HPF) 0-5 Ur Epithelial Cells (NONE - FEW /LPF) OCC Urine Bacteria (NONE SEEN /HPF) None Urine Mucus (NONE SEEN /LPF) 2+ Urine Ascorbic Acid POSITIVE A Lab StatementLaboratory studies reviewed and considered in the medical decision-making. Point of Care TestingPulse Oximetry Pulse Ox % 99 On: Room air Interpretation Interpreted by me, Pulse oximetry normal Re-Evaluation MDM Free Text MDM NotesFree Text MDM NotesHemoglobin 12.7 patient is not rest the labs were within normal limits. Instructed patient to follow-up with her primary care provider she states she will. Differential DiagnosisDifferential Diagnosis Urinary tract infection, Vaginal bleeding, anemia Patient Discharge Departure Vital Signs/ConditionVital SignsFirst Documented: Result Date Time Temp 36.8 03/24 1637 Pulse Ox 99 03/24 1639 B/P 116/79 03/24 1639 B/P Mean 91.3 03/24 1639 Pulse 109 03/24 1639 Resp 16 03/24 1639 Last Documented: Result Date Time Pulse Ox 99 03/24 1639 B/P 116/79 03/24 1639 B/P Mean 91.3 03/24 1639 Pulse 109 03/24 1639 Resp 16 03/24 1639 Temp 36.8 03/24 1637 All vital signs available at the time of this entry have been reviewed. Condition Stable Clinical ImpressionClinical ImpressionPrimary Impression: Vaginal bleeding Disposition DecisionDischarge )( Discharged to Home Yes )( Time 1807 )( Date 03/24/20 Discharge/Care PlanCounseled Regarding Diagnosis, Lab results, Need for follow-up, When to return to EDPatient Instructions ED Bleed Irregular VaginalReferralsMark Braxton MD Departure FormsWORK/SCHOOL EXCUSE-CAREGIVER 2 Discharge NoteI have spoken with the patient and/or caregivers. I have explained the patient'scondition, diagnoses and treatment plan based on the information available to meat this time. I have answered the patient's and/or caregiver's questions and addressed any concerns. The patient and/or caregivers have as good an understanding of the patient's diagnosis, condition and treatment plan as can beexpected at this point. The vital signs have been stable. The patient's condition is stable and appropriate for discharge from the emergency department. The patient will pursue further outpatient evaluation with the primary care physician or other designated or consulting physician as outlined in the discharge instructions. The patient and/or caregivers are agreeable to this planof care and follow-up instructions have been explained in detail. The patient and/or caregivers have received these instructions in written format and have expressed an understanding of the discharge instructions. The patient and/or caregivers are aware that any significant change in condition or worsening of symptoms should prompt an immediate return to this or the closest emergency department or a call to 911. at 2222RPT #:[id number] OF REPORTEDEmergency department [id number]:57:00N.[id number] for patient [id number]:22:33 [facility] 2020-03-24 17:57:00 [id number]+[id number] [id number]+[id number]/[id number]/6dnjm2R [id number]:57:00 [facility] ([facility])EMERGENCY PROVIDER REPORTREPORT#:[id number] REPORT STATUS: SignedDATE:03/24/20 TIME: 1756 PATIENT: TONIA SMITH UNIT #: [id number]#: [id number] ROOM: BED:AGE: 19 SEX: F PCP PHYS: No Primary or Family PhysicianSERVICE AUTHOR: Luis Washington * ALL edits or amendments must be made on the electronic/computer document * HPI- Female GeneralConfirmed Patient YesInitial Greet Date/Time 03/24/20 1642 PresentationChief Complaint Vaginal bleedingHx Obtained From Patient)( Sudden in Onset? NoOnset Occurred Days ago (10)Severity: Onset MildSeverity: Current Mild ContextSimilar Sx Previous No Free Text HPI NotesFree Text HPI [id number] female with no medical history states, states she is had vaginal bleeding for 10 days. States she does have irregular menstrual cycles. She discussed this with her physician today who told her she probably need to be on control. Patient does not wish to go on control states she is trying to get . No fever no chills no nausea vomiting. No pelvic cramping no back cramping. Denies at this time. Risk- Female Risk StratificationEctopic Risk factors reviewed Review of Systems ROS StatementsAll systems rev neg except as marked.Complete sys rev neg except as marked. Focused Review of SystemsGU FemaleReports: Vaginal bleeding - abnl. Past Medical History - AdultStated Complaint VAGINAL BLEEDINGAllergiesCoded Allergies:Penicillins (HIVES 03/23/20) Pt reports no significant: Social historyFamily History:Reports: Diabetes. Physical Exam Vital SignsVital SignsFirst Documented: Result Date Time Temp 36.8 03/24 1637 Pulse Ox 99 03/24 1639 B/P 116/79 03/24 1639 B/P Mean 91.3 03/24 1639 Pulse 109 03/24 1639 Resp 16 03/24 1639 Last Documented: Result Date Time Pulse Ox 99 03/24 1639 B/P 116/79 03/24 1639 B/P Mean 91.3 03/24 1639 Pulse 109 03/24 1639 Resp 16 03/24 1639 Temp 36.8 03/24 1637 Review of Vital Signs Reviewed, Vital signs normal Basic Physical ExamBasic PE GEN: Well appearing/NAD, HEAD: Atraumatic/NC, EYES: PERRL, conj clear Focused PEGeneral/Const General/Const Awake, Alert, No acute distressResp/Chest Respiratory/Chest Breath sounds NL, Breath sounds = bilat, No wheezingCardiovascular Cardiovascular Heart rate NL, Regular rhythm, Heart sounds NL, No murmursAbdomen/GI Abdomen/GI Soft, Non-tender, BS normoactive, No distentionMS Back Back Full range of motionSkin Skin Atraumatic, Color NL, IntactGenitourinary General Exam deferred Interpretation Diagnostics Lab Results InterpretationResultsLaboratory Tests 03/24/201712:[Embedded Image Not Available]Laboratory Tests: 03/24 171 Chemistry Sodium (135 - 145 mmol/L) 137 Potassium (3.6 - 5.0 mmol/L) 3.9 Chloride (101 - 111 mmol/L) 106 Carbon Dioxide (21 - 31 mmol/L) 23 BUN (6 - 20 mg/dl) 11 Creatinine (0.44 - 1.03 mg/dL) 0.96 Glomerular Filtr Rate (>60) >=60 max estimate Glucose (70 - 100 mg/dl) 93 Calcium (8.5 - 10.5 mg/dL) 9.3 Total Bilirubin (0.2 - 1.3 mg/dL) 0.80 Direct Bilirubin (0.00 - 0.20 mg/dL) 0.2 AST (10 - 42 U/L) 27 ALT (10 - 60 U/L) 25 Total Alk Phosphatase (42 - 121 U/L) 66 Total Protein (6.7 - 8.2 g/dL) 8.4 H Albumin (3.2 - 5.5 g/dL) 4.2 Serum HCG, Qual (NEGATIVE) NEGATIVE Hematology WBC (3.2 - 11.5 x10 3/uL) 8.6 RBC (3.70 - 5.10 x10(6)/m) 4.84 Hgb (12.0 - 15.0 g/dL) 12.7 Hct (35.7 - 44.8 %) 40.7 MCV (80 - 100 fL) 84 MCH (26.2 - 33.8 pg) 26.2 MCHC (30.0 - 34.0 g/dL) 31.2 RDW (11.3 - 14.5 %) 12.7 Plt Count (130 - 408 x10 3/uL) 333 MPV (8.6 - 12.6 fL) 9.0 Neut % (Auto) (40.0 - 70.0 %) 56.7 Lymph % (Auto) (20 - 40 %) 32.6 [place] % (Auto) (1 - 10 %) 5.8 Eos % (Auto) (0.0 - 5.0 %) 4.0 Baso % (Auto) (0.0 - 1.0 %) 0.4 Neut # (Auto) (1.6 - 7.2 x10 3/uL) 4.9 Lymph # (Auto) (1.1 - 2.7 x10 3/uL) 2.79 H [place] # (Auto) (0.3 - 0.8 x10 3/uL) 0.5 Eos # (Auto) (0.0 - 0.5 x10 3/uL) 0.3 Baso # (Auto) (0.0 - 0.1 x10 3/uL) 0.0 Immature Gran % (0.0 - 2.0 %) 0.5 Nucleated RBC % (0.0 - 0.9 %) 0.0 03/24 1735 Urines Urine Color (YELLOW) YELLOW Urine Appearance (CLEAR) HAZY Urine pH (5.0 - 9.0) 5.0 Ur Specific [place] (1.001 - 1.030) 1.027 Urine Protein (NEGATIVE) 1+ H Urine Glucose (UA) (NEGATIVE) NEGATIVE Urine Ketones (NEGATIVE) NEGATIVE Urine Blood (NEGATIVE) 1+ Urine Nitrite (NEGATIVE) NEGATIVE Urine Bilirubin (NEGATIVE) NEGATIVE Urine Urobilinogen (<=1.0) 2.0 H Ur Leukocyte Esterase (NEGATIVE) NEGATIVE Urine RBC (0 - 5 /HPF) 11-20 Urine WBC (0 - 5 /HPF) 0-5 Ur Epithelial Cells (NONE - FEW /LPF) OCC Urine Bacteria (NONE SEEN /HPF) None Urine Mucus (NONE SEEN /LPF) 2+ Urine Ascorbic Acid POSITIVE A Lab StatementLaboratory studies reviewed and considered in the medical decision-making. Point of Care TestingPulse Oximetry Pulse Ox % 99 On: Room air Interpretation Interpreted by me, Pulse oximetry normal Re-Evaluation MDM Free Text MDM NotesFree Text MDM NotesHemoglobin 12.7 patient is not rest the labs were within normal limits. Instructed patient to follow-up with her primary care provider she states she will. Differential DiagnosisDifferential Diagnosis Urinary tract infection, Vaginal bleeding, anemia Patient Discharge Departure Vital Signs/ConditionVital SignsFirst Documented: Result Date Time Temp 36.8 03/24 1637 Pulse Ox 99 03/24 1639 B/P 116/79 03/24 1639 B/P Mean 91.3 03/24 1639 Pulse 109 03/24 1639 Resp 16 03/24 1639 Last Documented: Result Date Time Pulse Ox 99 03/24 1639 B/P 116/79 03/24 1639 B/P Mean 91.3 03/24 1639 Pulse 109 03/24 1639 Resp 16 03/24 1639 Temp 36.8 03/24 1637 All vital signs available at the time of this entry have been reviewed. Condition Stable Clinical ImpressionClinical ImpressionPrimary Impression: Vaginal bleeding Disposition DecisionDischarge )( Discharged to Home Yes )( Time 1807 )( Date 03/24/20 Discharge/Care PlanCounseled Regarding Diagnosis, Lab results, Need for follow-up, When to return to EDPatient Instructions ED Bleed Irregular VaginalReferralsMark Braxton MD Departure FormsWORK/SCHOOL EXCUSE-CAREGIVER 2 Discharge NoteI have spoken with the patient and/or caregivers. I have explained the patient'scondition, diagnoses and treatment plan based on the information available to meat this time. I have answered the patient's and/or caregiver's questions and addressed any concerns. The patient and/or caregivers have as good an understanding of the patient's diagnosis, condition and treatment plan as can beexpected at this point. The vital signs have been stable. The patient's condition is stable and appropriate for discharge from the emergency department. The patient will pursue further outpatient evaluation with the primary care physician or other designated or consulting physician as outlined in the discharge instructions. The patient and/or caregivers are agreeable to this planof care and follow-up instructions have been explained in detail. The patient and/or caregivers have received these instructions in written format and have expressed an understanding of the discharge instructions. The patient and/or caregivers are aware that any significant change in condition or worsening of symptoms should prompt an immediate return to this or the closest emergency department or a call to 911. at 2222 at 1430RPT #:[id number] OF REPORTEDEast [facility] department [id number]:00N.[id number] for patient [id number] [facility]
[2023-11-01 14:18] LABS: Sqamous Epithelial <5 /HPF (None Seen); Urine Bacteria None Seen /HPF (<20); Urine Bilirubin NEGATIVE (Negative); Urine Blood Negative (Negative); Urine Clarity Clear (Clear); Urine Color Light-Yellow (Yellow); Urine Culture Reflex Order NOT NEEDED; Urine Glucose NEGATIVE (Negative); Urine Ketones NEGATIVE (Negative); Urine Micro Reflex YN NO BILL MICROSCOPIC; Urine Mucus Slight /HPF (None Seen); Urine Nitrite NEGATIVE (Negative); Urine Protein NEGATIVE (Negative); Urine RBC <5 /HPF (None Seen); Urine Urobilinogen Normal (Normal); Urine WBC <5 /HPF (<5); Urine pH 5.5 (5.0-7.0)
--- NOTE | 2023-11-01 15:10 | ER ---
Nurse's Notes [facility] Name: Tripp Smith Age: 23 yrs Sex: Female : 2000 Arrival Date: 11/01/2023 Time: 13:35 Bed 8 Private MD: Diagnosis: Dysuria, vaginal discharge Presentation: 10/31 13:40 Chief complaint: Patient states: burning, and pain with urination, also a white, milky ko1 discharge for a week. Coronavirus screen: At this time, the client does not indicate any symptoms associated with coronavirus-19. Ebola Screen: No symptoms or risks identified at this time. Initial Sepsis Screen: Does the patient meet any 2 criteria? No. Patient's initial sepsis screen is negative. Does the patient have a suspected source of infection? No. Patient's initial sepsis screen is negative. Risk Assessment: Do you want to hurt yourself or someone else? Patient reports no desire to harm self or others. Onset of symptoms is unknown. 13:40 Method Of Arrival: Ambulatory ko1 13:40 Acuity: ALEJANDRO 4 ko1 Triage Assessment: 13:44 General: Appears in no apparent distress. Behavior is calm, cooperative, appropriate ko1 for age. Pain: Denies pain. 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 - Infectious Disease History:: Denies. - Social history:: Smoking status: Patient denies any tobacco usage or history of. Screenin:32 [facility] ED Fall Risk Assessment (Adult) History of falling in the last 3 months, nj1 including since admission No falls in past 3 months (0 pts) Confusion or Disorientation No (0 pts) Intoxicated or Sedated No (0 pts) Impaired Gait No (0 pts) Mobility Assist Device Used No (0 pt) Altered Elimination No (0 pt) Score/Fall Risk Level 0 - 2 = Low Risk Oriented to surroundings, Maintained a safe environment, Hourly rounding (assess needs \T\ fall precautionary measures) done. Abuse screen: Denies threats or abuse. Denies injuries from another. Nutritional screening: No deficits noted. Tuberculosis screening: No symptoms or risk factors identified. Assessment: 14:31 General: Appears in no apparent distress. comfortable, Behavior is calm, cooperative, nj1 appropriate for age. Pain: Denies pain. Neuro: Level of Consciousness is awake, alert, obeys commands, Oriented to person, place, time, situation. Cardiovascular: Patient's skin is warm and dry. Respiratory: Airway is patent Respiratory effort is even, unlabored. : Reports burning with urination. Vital Signs: 13:40 BP 120 / 68; Pulse 80; Resp 16; Temp 98.3; Pulse Ox 99% ; ko1 ED Course: 13:39 Patient arrived in ED. ra3 13:40 Jayro Harding MD is Attending Physician. sp3 13:44 Triage completed. ko1 13:44 Arm band placed on right wrist. Patient placed in an exam room, on a stretcher, on ko1 pulse oximetry, Patient notified of wait time. 13:55 Ita Ayon, RN is Primary Nurse. nj1 14:32 Patient has correct armband on for positive identification. Bed in low position. Call nj1 light in reach. Provided Education on: call light, fall precautions. 15:19 No provider procedures requiring assistance completed. Patient did not have IV access ld1 during this emergency room visit. Administered Medications: 15:00 Drug: Rocephin (cefTRIAXone) IM 250 mg IM once Route: IM; Site: right gluteus; ld1 15:19 Follow up: Response: No adverse reaction ld1 Medication: 15:20 VIS not applicable for this client. ld1 Outcome: 14:58 Discharge ordered by . sp3 15:20 Discharged to home ambulatory, ld1 15:20 Condition: stable 15:20 Discharge instructions given to patient, family, Instructed on discharge instructions, follow up and referral plans. medication usage, Demonstrated understanding of instructions, follow-up care, medications, Prescriptions given X 1, 15:20 Patient left the ED. ld1 Signatures: Helga Marcano, RN RN ld1 Jayro Harding MD MD sp3 Clarice Abdalla RN RN ko1 Ita Ayon, RN RN nj1 Ina Engel ra3
--- NOTE | 2023-11-01 15:10 | EDPHYS ---
Physician Documentation [facility] Name: Tripp Smith Age: 23 yrs Sex: Female : 2000 Arrival Date: 11/01/2023 Time: 13:35 Bed 8 Private MD: ED Physician Jayro Harding HPI: 10/31 14:07 This 23 yrs old Black Female presents to ER via Ambulatory with complaints of Pain With sp3 Urination, Urinary Problem - x1week. 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 She is sexually active but states monogamous partner and does not have a high index of suspicion for any STI. She is most concerned about a possible bladder infection. She denies any other symptoms including abdominal pain, nausea, vomiting, diarrhea, missed menses, low back pain, nausea, fever, chest pain, shortness of breath, rash, or any other signs or symptoms on ROS at this time.. 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 - Infectious Disease History:: Denies. - Social history:: Smoking status: Patient denies any tobacco usage or history of. ROS: 14:08 Constitutional: Negative for fever, chills, and weight loss, Eyes: Negative for injury, sp3 pain, redness, and discharge, ENT: Negative for injury, pain, and discharge, Neck: Negative for injury, pain, and swelling, Cardiovascular: Negative for chest pain, palpitations, and edema, Respiratory: Negative for shortness of breath, cough, wheezing, and pleuritic chest pain, Abdomen/GI: Negative for abdominal pain, nausea, vomiting, diarrhea, and constipation, Back: Negative for injury and pain, MS/Extremity: Negative for injury and deformity, Skin: Negative for injury, rash, and discoloration, Neuro: Negative for headache, weakness, numbness, tingling, and seizure, Psych: Negative for depression, anxiety, suicide ideation, homicidal ideation, and hallucinations, Allergy/Immunology: Negative for hives, rash, and allergies, 14:08 All other systems are negative, Exam: 14:08 Constitutional: This is a well developed, well nourished patient who is awake, alert, sp3 and in no acute distress. Head/Face: Normocephalic, atraumatic. Eyes: Pupils equal round and reactive to light, extra-ocular motions intact. Lids and lashes normal. Conjunctiva and sclera are non-icteric and not injected. Cornea within normal limits. Periorbital areas with no swelling, redness, or edema. Neck: Trachea midline, no thyromegaly or masses palpated, and no cervical lymphadenopathy. Supple, full range of motion without nuchal rigidity, or vertebral point tenderness. No Meningismus. Chest/axilla: Normal chest wall appearance and motion. Nontender with no deformity. No lesions are appreciated. Cardiovascular: Regular rate and rhythm with a normal S1 and S2. No gallops, murmurs, or rubs. Normal PMI, no JVD. No pulse deficits. Respiratory: Lungs have equal breath sounds bilaterally, clear to auscultation and percussion. No rales, rhonchi or wheezes noted. No increased work of breathing, no retractions or nasal flaring. Abdomen/GI: Soft, non-tender, with normal bowel sounds. No distension or tympany. No guarding or rebound. No evidence of tenderness throughout. Back: No spinal tenderness. No costovertebral tenderness. Full range of motion. Skin: Warm, dry with normal turgor. Normal color with no rashes, no lesions, and no evidence of cellulitis. MS/ Extremity: Pulses equal, no cyanosis. Neurovascular intact. Full, normal range of motion. Neuro: Awake and alert, GCS 15, oriented to person, place, time, and situation. Cranial nerves II-XII grossly intact. Motor strength 5/5 in all extremities. Sensory grossly intact. Cerebellar exam normal. Normal gait. Psych: Awake, alert, with orientation to person, place and time. Behavior, mood, and affect are within normal limits. Vital Signs: 13:40 BP 120 / 68; Pulse 80; Resp 16; Temp 98.3; Pulse Ox 99% ; ko1 MDM: 13:43 Patient medically screened. sp3 14:08 Data reviewed: vital signs, nurses notes, lab test result(s). ED course: 23-year-old sp3 female with symptoms. Consider UTI/pyelonephritis spectrum versus STI. I am not highly suspicious for kidney stone, GI pathology, vascular pathology, sepsis, shock or any other critical process at this time. Workup include UA hCG and STI probes. Disposition pending workup and patient course.. 14:58 ED course: UA is negative and patient is not . I have discussed possibilities sp3 of STI with her. She chooses to go ahead and get treated awaiting results. We will administer Rocephin 250 mg IM and discharge patient home on doxycycline p.o.. 10/31 13:42 Order name: UAM; Complete Time: 14:54 sp3 10/31 13:42 Order name: Test, Urine; Complete Time: 14:54 sp3 10/31 14:05 Order name: GC (Ant/Chl) Probe URINE sp3 Administered Medications: 15:00 Drug: Rocephin (cefTRIAXone) IM 250 mg IM once Route: IM; Site: right gluteus; ld1 15:19 Follow up: Response: No adverse reaction ld1 Disposition Summary: 11/01/23 14:58 Discharge Ordered Notes: Location: Home sp3 Condition: Stable sp3 Diagnosis - Dysuria, vaginal discharge sp3 Followup: sp3 - With: Private Physician - When: Upon discharge from the Emergency Department - Reason: Continuance of care Discharge Instructions: - Discharge Summary Sheet sp3 - Urethritis, Adult sp3 Forms: - Medication Reconciliation Form sp3 - Antibiotic Education sp3 - Prescription Opioid Use sp3 - Patient Portal Instructions sp3 - Leadership Thank You Letter sp3 Prescriptions: - Diflucan 150 mg Oral Tablet - take 1 tablet ORAL route one time for 1 day; 1 tablet; Refills: 0, Product sp3 Selection Permitted - Doxycycline Monohydrate 100 mg Oral Tablet - take 1 tablet ORAL route every 12 hours for 10 days; 20 tablet; Refills: 0, sp3 Product Selection Permitted Signatures: Dispatcher [employer] EDMS Helga Marcano RN RN ld1 Jayro Harding MD MD sp3 Clarice Abdalla RN RN ko1
[2023-11-01] MEDS ORDERED: CEFTRIAXONE 250 MG/VIAL ONE (15:14)
[2023-11-01 15:32] VITALS: BP 120/68; TEMP 98.3; O2SAT 99
== END 2023-11-01 15:20 | disposition home or self-care (01) ==
LOC: ER 13:35
DX: R30.0 Dysuria (principal); N89.8 Other specified noninflammatory disorders of vagina
CPT/HCPCS: 81001; 81025; 87490; 87590; J0696